=== PATIENT | female | born 1985 | race Caucasian/White ===

== ENCOUNTER → 2018-02-23 08:45 | Outpatient (CLI) | payer SELFPAY ==
--- NOTE | 2018-02-23 | DI.US.S_ITS ---
PROCEDURE: US OB LIMITED INDICATIONS: SIZE GREATER THAN DATES OUTSIDE/PRIOR DATING DATA: Last menstrual period (LMP): Not available. LMP-based estimated date of delivery (HOLDEN): Not available. First dating scan (date and location): 11/12/17. Estimated date of delivery (HOLDEN) from first dating scan: 03/21/18. TECHNIQUE: Real-time scanning was performed of the fetus, with image documentation and biometric measurements. Endovaginal scanning: None review for this study COMPARISON: 11/12/17 OB ultrasound. FINDINGS: General: A single living intrauterine gestation is present. Presentation: Vertex. Placenta: Placental position is anterior, without previa. Amniotic fluid index: 10.2 cm, normal range is 5-24 cm. heart rate: 157 beats per minute. biometrics: Biparietal diameter: 8.9 cm, 36 weeks 2 days Head circumference: 33.4 cm, 38 weeks 1 day Abdominal circumference: 34.3 cm, 38 weeks 1 day Femur length: 6.8 cm, 34 weeks 6 days Estimated gestational age from initial scan: 36 weeks 2 days Composite gestational age from present scan: 36 weeks 6 days Estimated weight and percentile: 3137 g, 76th percentile Measurement variability for biometric dating: +/- 7 days from 14 weeks to 15 weeks 6 days gestation, +/- 10 days from 16 weeks to 21 weeks 6 days gestation, +/- 2 weeks from 22 weeks to 27 weeks 6 days gestation, +/- 3 weeks for 28 weeks gestation or later. weight reference: 4500 g or EFW >90/95% is considered macrosomia or large for gestational age. EFW <10% is small for gestational age. EFW 5% or less is considered intra-uterine growth restriction. Other: Not applicable. IMPRESSION: Appropriate interval growth, no anomaly seen, normal amniotic fluid volume. The delivery date is projected to be centered on 03/21/18. Dictated by: Bairon Alfaro M.D. on 02/23/2018 at 11:16 Approved by: Bairon Alfaro M.D. on 02/23/2018 at 11:18
== END ==
PROVIDERS: Family Provider Family Medicine; PCP Family Medicine; Visit Provider Midwife
DX: O36.63X0 Maternal care for excessive fetal growth, third trimester, not applicable or unspecified (principal); Z3A.36 36 weeks gestation of pregnancy
CPT/HCPCS: 76815

== ENCOUNTER → 2021-03-20 15:01 | Outpatient (CLI) | payer SELFPAY ==
--- NOTE | 2021-03-20 15:06 | DI.US.S_ITS ---
PROCEDURE: US OB >= 14 WEEKS FETUS INDICATIONS: ANATOMY OUTSIDE/PRIOR DATING DATA: Last menstrual period (LMP): 11/01/2020. LMP-based estimated date of delivery (HOLDEN): 08/08/2021 . First dating scan (date and location): 03/20/2021 . Estimated date of delivery (HOLDEN) from first dating scan: 08/05/2021 . TECHNIQUE: Real-time scanning was performed of the fetus, with image documentation and biometric measurements. Endovaginal scanning: No COMPARISON: None. FINDINGS: General: A single living intrauterine gestation is present. Presentation: Variable. Placenta: Placental position is anterior , without previa. Amniotic fluid index: 16.6 cm, normal range is 5-24 cm. heart rate: 150 beats per minute. Maternal cervical canal: 3.8 cm long. Normal lower limit is 2.5 cm. biometrics: Biparietal diameter: 20 weeks 6 days Head circumference: 19 weeks 6 days Abdominal circumference: 20 weeks 6 days Femur length: 19 weeks 4 days Estimated gestational age from initial scan: 19 weeks 6 days Composite gestational age from present scan: 20 weeks 2 days Estimated weight and percentile: 339 g; 66 percentile Measurement variability for biometric dating: +/- 7 days from 14 weeks to 15 weeks 6 days gestation, +/- 10 days from 16 weeks to 21 weeks 6 days gestation, +/- 2 weeks from 22 weeks to 27 weeks 6 days gestation, +/- 3 weeks for 28 weeks gestation or later. weight reference: 4500 g or EFW >90/95% is considered macrosomia or large for gestational age. EFW <10% is small for gestational age. EFW 5% or less is considered intra-uterine growth restriction. Anatomic survey: Neuro: Ventricles are non-dilated at less than 10 mm. Cisterna magna is normal at 3-11 mm. Cerebellum is normal in size and morphology. Nuchal skin fold: Normal at less than 6 mm between 14-21 weeks gestational age. Face: Nose and lips, facial profile are normal. Spine: No evidence for spina bifida. Heart: 4-chambered heart is present, with normal ventricular outflow tracts. Diaphragm: Diaphragm is intact. Stomach: Left-sided stomach is present. Kidneys: Mild pyelectasis with the right renal pelvis measuring 5.9 mm and 5.7 mm on the left Cord: 3-vessel cord has orthotopic insertion. Marginal cord insertion site. Bladder: Normal in size. Extremities: All 4 extremities identified. IMPRESSION: 1. Single living IUP with composite age of 20 weeks 2 days corresponding to ultrasound HOLDEN of 08/05/2021. 2. Mild bilateral pelvicaliectasis; otherwise normal anatomic survey. Follow-up recommended. 3. Marginal placental cord insertion site which can be reassessed on follow-up examination. Dictated by: Misael Fuentes [facility] Interpreted: Bairon Alfaro MD on 03/20/2021 at 16:34 Transcribed by: KALPANA on 03/20/2021 at 16:36 Approved by: Bairon Alfaro M.D. on 03/21/2021 at 11:33
== END ==
PROVIDERS: PCP Nurse Practitioner Family; Referring Provider Registered Nurse; Visit Provider Registered Nurse
DX: Z36.89 Encounter for other specified antenatal screening (principal); Z3A.20 20 weeks gestation of pregnancy
CPT/HCPCS: 76811

== ENCOUNTER 2022-09-26 15:15 | Outpatient (RCR) | payer SELFPAY ==
--- NOTE | 2021-10-03 17:44 | PT.OIE ---
Current Diagnoses Pain in unspecified hip (10/03/21) Spinal instabilities, sacral and sacrococcygeal region (10/03/21) Obstetric damage to pelvic joints and ligaments (10/03/21) Encounter for routine follow-up (10/03/21) Visit Care Team Role Provider Type HALINA Guzman Family Provider Non-Staff Primary Care Provider Specialty: Family Practice Address: [address] [place] [address], [id number] Email: Arleth Schuster CNM Attending Provider Advanced Mainframe Software Developer Referring Provider Specialty: Medical Address: [address] [place] [address], [phone] Email: Physical Therapy Initial Evaluation PT-OP-A Visit Information Start: 10/03/21 09:36 Freq: Status: Active Protocol: Document 10/03/21 09:38 [facility] (Rec: 10/03/21 11:06 [facility] [id number]) Out-Patient Physical Therapy Visit Information Visit Information Visit Type Initial Evaluation Visit Start Time 09:45 Visit Stop Time 10:30 Total Visit Minutes 45 Visit Number 1 Evaluation Information Evaluation Date 10/03/21 PT-OP-B Current Condition Start: 10/03/21 09:36 Freq: Status: Active Protocol: Document 10/03/21 09:45 [facility] (Rec: 10/03/21 11:06 [facility] [id number]) Current Condition History of Current Condition Onset Date 2020, 2 months post Current Complaints hip pain and difficulty ambulating post History of Current Condition Hip pain was really bad in and now her baby is 2 months old. Jeane reports she has had 4 pregnancies in 2013, 2016, 2018, 2020, Her pain was worse towards the end of this last but it didnt seem to start as early on her her . She describes painmore in her SI joint but it seems to be related to core and instability, its almost always her right hip, sometimes she can get caught and feel pain then it goes away. She feels stiff in the am but doesn't feel stable stepping uo over a gate. All deliveries were vaginal deliveries. Tiny bit of tearing but didn't need stitches. Pt notes she really isn't having any leakage issues. She feels abdominal pressure at can feel like she is at time straining through her abdominal muscles. She has a video from the [facility] team for core stability Treatment Goals Patient/Caregiver Goals Pts goals include reducing pain and improving her stability. She wants to be able to be active with her kids without pain and walk smoothly Current Functional Impairments (Reported) Functional Limitations- ADL's increased hip pain with sitting and sleeping, pain with transitional movements such as supine to sidelying in bed due to SI instability Functional Limitations- Mobility/Gait Jeane is limited with walking for exercise as this increases her pain, pt doesn't feel as if she is walking smoothly PT-OP-C Subjective Start: 10/03/21 09:36 Freq: Status: Active Protocol: Document 10/03/21 09:45 [facility] (Rec: 10/09/21 15:09 [facility] [id number]) OP-PT Pain Assessment Location right posterior hip/gluteals Pain Location Details pt reports piercing hip pain with walking and after sitting and sleeping Intensity 6 Scale Used Numeric (0 - 10) Frequency Intermittent SI joint Pain Location Details SI joint Intensity 6 Scale Used Numeric (0 - 10) PT-OP-F Manual Assessment Start: 10/03/21 09:36 Freq: Status: Active Protocol: Document 10/03/21 09:38 [facility] (Rec: 10/04/21 13:36 [facility] [id number]) Manual Assessments Soft Tissue Assessment Soft Tissue Mobility Assessment tightness of the right >Left piriformis and posterior gluteals Diastasis scan was performed and Jeane is not presenting with a diastasis tightness of the L>R quadratus lumborum, lumbar paraspinal tightness B Joint Mobility Assessment Joint Mobility Assessment 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 With the SI specifically there is hypermobility with + ASLR test B, this test causes pain Standing single leg marching causes pain and unlocking of the SI joint PT-OP-I Pelvic Floor Start: 10/03/21 09:36 Freq: Status: Active Protocol: Document 10/03/21 09:45 [facility] (Rec: 10/04/21 13:36 [facility] [id number]) Pelvic Floor Assessment Urine Pelvic Floor Surgery No PT-OP-J Posture/Palpation/Skin Start: 10/03/21 09:36 Freq: Status: Active Protocol: Document 10/03/21 09:45 [facility] (Rec: 10/04/21 13:36 [facility] [id number]) Posture Evaluation Position Standing Evaluation View Lateral Pelvis Posture Posterior Tilted Comments Posture Comments pt stands in with a posterior pelvic tilt of the pelvis, hips anteriorly shifted bilaterally, pt likes to carry her kiddos on her left hip, she is elevated with her pelvis on the left PT-OP-M Strength Start: 10/03/21 09:36 Freq: Status: Active Protocol: Document 10/03/21 09:45 [facility] (Rec: 10/04/21 13:36 [facility] [id number]) Trunk Strength Trunk Manual Muscle Testing Testing Position Supine Flexion 2+ Poor+ Core Stabilization Jeane has a difficult time with TA recruitment in supine, when positioned in quadruped she is able to facilitate her TA. With attempts at dynamic stabilization today she had pain in her SI joint, she has pain with turning over in bed and was educated today on core recruitment prior to any transfers Hip Strength Hip Manual Muscle Testing Right Extension (S1) 3 Fair Abduction 3 Fair Left Extension (S1) 3 Fair Abduction 3 Fair PT-OP-Q Treatments Start: 10/03/21 14:37 Freq: Status: Active Protocol: Document 10/03/21 14:37 [facility] (Rec: 10/03/21 14:38 [facility] [id number]) Therapeutic Exercises Supine Exercises supine adductor squeeze with pelvic floor Reps/Minutes x 10 reps Other Exercises quadruped TA Reps/Minutes x 10 holding 10 sec Self-Care/Home Management Treatment Activities Self-Care/Home Management Activities body mechanics training to avoid strain to the SI joint PT-OP-T Assessment and Plan Start: 10/03/21 09:36 Freq: Status: Active Protocol: Document 10/03/21 09:45 [facility] (Rec: 10/09/21 15:12 [facility] [id number]) Physical Therapy Assessment Rehab Potential Rehabilitation Potential Excellent Evaluation Complexity Number of Personal Factors/Comorbidities 0 Number of Body Systems Impaired 1-2 Clinical Presentation at Evaluation Stable Impairments Impairments Activity Tolerance,Gait,Pain, Posture,ROM,Soft Tissue Mobility,Strength,Tone Goals 4 Impairment Core weakness of the transverse abdominal muscles and pelvic floor Short Term Goal (STG) Jeane is educated on transverse abdominal and pelvic floor stabilization for a HEP STG Duration 4 weeks Solar Sales Estimator Goal (LTG) Jeane presents with improve core stabilization for her deep transverse abdominal muscles and her pelvic floor providing increased support for her SI joint. LTG Duration 12 weeks 3 Impairment posterior/deep gluteal hip pain R>L made worse with walking. Pt rates her pain as 7/10 Assisted Goal (LTG) Jeane reports a overall reduction in hip pain and is able to walk and play with her kids with reduced pain LTG Duration 12 weeks 2 Impairment SI instability Jeane is unable to perform a active SLR due to SI pain R> L Short Term Goal (STG) Jeane is educated in a HEP for core stability STG Duration 4 weeks Assisted Goal (LTG) Jeane has improved SI stability and is able to stabilize for a ASLR test LTG Duration 12 weeks 1 Impairment SI and hip pain worse laying down to sleep, after sitting, and with walking. Pt has pain in her SI rolling over in bed . Short Term Goal (STG) Jeane is educated on abdominal bracing for bed mobility and positional changes STG Duration 4 weeks Solar Sales Estimator Goal (LTG) Jeane no longer complains of pain with bed mobility, she is able to perform sit-stand without pain and can increase her walking distance to 1 mile or greater. LTG Duration 12 weeks Assessment Summary Assessment Jeane is a 35 year old female who presents to physical therapy 2 months post after her 4th childbirth. She describes both core instability as well as intermittent piercing hip pain. Her pain is worse when walking and after sitting/ sleeping. Her goals are to improve her core strength and decrease her hip pain so that she can be active with her kids. With examination today she presents with SI instability and poor postural habits that may be contributing to her pain. She appears hypermobile throughout all her joints. With standing she tends to posteriorly pelvic tilt with a anterior sheer of the femoral head B. She is tender in the posterior gluteals R>L. Treatment today focused on facilitation of her deep core muscles and she was able to activate both her pelvic floor and transverse abdominal wall . She was given SI bracing exercises to do while she moves in bed and transitions from supine to sitting at the edge of her bed since this currently gives her pain. Body mechanics training was also initiated today to reduce undue strain to her hips and SI joint. Jeane is a good candidate for PT for core strengthening and SI stabilization exercises . Physical Therapy Plan Frequency and Duration Frequency of Treatment 1x/Week Duration of Treatment 12 Plan of Care Start Date 10/03/21 Plan of Care End Date 12/26/21 Therapeutic Interventions Therapeutic Interventions Home Exercise Program,Joint Mobilizations,Manual Therapy, Neuromuscular Re-education, Patient/Caregiver Education, Self-Care/Home Management,Soft Tissue Mobilization, Therapeutic Exercises Next Visit Focus/Plan Next Note Type Treatment Note Next Visit Plan core stabilization program, working on transverse abdominals and pelvic floor, SI stabilization and body mechanics training. Review transitional movements for position changes in bed with stabilization techniques
--- NOTE | 2021-10-03 17:47 | PT.OPPOC ---
Physical, Occupational & Speech Therapy At [facility] Current Diagnoses Pain in unspecified hip (10/03/21) Spinal instabilities, sacral and sacrococcygeal region (10/03/21) Obstetric damage to pelvic joints and ligaments (10/03/21) Encounter for routine follow-up (10/03/21) Visit Care Team Role Provider Type HALINA Guzman Family Provider Non-Staff Primary Care Provider Specialty: Family Practice Address: [address] [place] [address], [id number] Email: Arleth Schuster CNM Attending Provider Advanced Oncology Social Worker Referring Provider Specialty: Medical Address: [address] [place] [address], [phone] Email: Plan Of Care PT-OP-T Assessment and Plan Start: 10/03/21 09:36 Freq: Status: Active Protocol: Document 10/03/21 09:45 [facility] (Rec: 10/09/21 15:12 [facility] [id number]) Physical Therapy Assessment Rehab Potential Rehabilitation Potential Excellent Evaluation Complexity Number of Personal Factors/Comorbidities 0 Number of Body Systems Impaired 1-2 Clinical Presentation at Evaluation Stable Impairments Impairments Activity Tolerance,Gait,Pain, Posture,ROM,Soft Tissue Mobility,Strength,Tone Goals 4 Impairment Core weakness of the transverse abdominal muscles and pelvic floor Short Term Goal (STG) Jeane is educated on transverse abdominal and pelvic floor stabilization for a HEP STG Duration 4 weeks Mcfp Goal (LTG) Jeane presents with improved core stabilization for her deep transverse abdominal muscles and her pelvic floor providing increased support for her SI joint. LTG Duration 12 weeks 3 Impairment posterior/deep gluteal hip pain R>L made worse with walking. Pt rates her pain as 7/10 Labels Molder Goal (LTG) Jeane reports a overall reduction in hip pain and is able to walk and play with her kids with reduced pain LTG Duration 12 weeks 2 Impairment SI instability Jeane is unable to perform a active SLR due to SI pain R> L Short Term Goal (STG) Jeane is educated in a HEP for core stability STG Duration 4 weeks Mcfp Goal (LTG) Jeane has improved SI stability and is able to stabilize for a ASLR test LTG Duration 12 weeks 1 Impairment SI and hip pain worse laying down to sleep, after sitting, and with walking. Pt has pain in her SI rolling over in bed . Short Term Goal (STG) Jeane is educated on abdominal bracing for bed mobility and positional changes STG Duration 4 weeks Labels Molder Goal (LTG) Jeane no longer complains of pain with bed mobility, she is able to perform sit-stand without pain and can increase her walking distance to 1 mile or greater. LTG Duration 12 weeks Assessment Summary Assessment Jeane is a 35 year old female who presents to physical therapy 2 months post after her 4th childbirth. She describes both core instability as well as intermittent piercing hip pain. Her pain is worse when walking and after sitting/ sleeping. Her goals are to improve her core strength and decrease her hip pain so that she can be active with her kids. With examination today she presents with SI instability and poor postural habits that may be contributing to her pain. She appears hypermobile throughout all her joints. With standing she tends to posteriorly pelvic tilt with a anterior sheer of the femoral head B. She is tender in the posterior gluteals R>L. Treatment today focused on facilitation of her deep core muscles and she was able to activate both her pelvic floor and transverse abdominal wall . She was given SI bracing exercises to do while she moves in bed and transitions from supine to sitting at the edge of her bed since this currently gives her pain. Body mechanics training was also initiated today to reduce undue strain to her hips and SI joint. Jeane is a good candidate for PT for core strengthening and SI stabilization exercises . Physical Therapy Plan Frequency and Duration Frequency of Treatment 1x/Week Duration of Treatment 12 Plan of Care Start Date 10/03/21 Plan of Care End Date 12/26/21 Therapeutic Interventions Therapeutic Interventions Home Exercise Program,Joint Mobilizations,Manual Therapy, Neuromuscular Re-education, Patient/Caregiver Education, Self-Care/Home Management,Soft Tissue Mobilization, Therapeutic Exercises Next Visit Focus/Plan Next Note Type Treatment Note Next Visit Plan core stabilization program, working on transverse abdominals and pelvic floor, SI stabilization and body mechanics training. Review transitional movements for position changes in bed with stabilization techniques Plan of Care Dates Plan of Care Start Date 10/03/21 Plan of Care End Date 12/26/21 Electronically Signed by: Nedra Posey, PT 10/09/21 1747 Please Sign and Return: I have reviewed this Plan of Care and certify that the skilled therapy services above are required to meet the patient?s needs. Physician Signature Date Printed Name and Credentials Clinical Instructor Signature Printed Name and Credentials
--- NOTE | 2021-10-09 17:44 | PT.OPPOC ---
Physical, Occupational & Speech Therapy At [facility] Current Diagnoses Pain in unspecified hip (10/03/21) Spinal instabilities, sacral and sacrococcygeal region (10/03/21) Obstetric damage to pelvic joints and ligaments (10/03/21) Encounter for routine follow-up (10/03/21) Visit Care Team Role Provider Type HALINA Guzman Family Provider Non-Staff Primary Care Provider Specialty: Family Practice Address: [address] [place] [address], [id number] Email: Arleth Schuster CNM Attending Provider Advanced Handle And Vent Machine Operator Referring Provider Specialty: Medical Address: [address] [place] [address], [phone] Email: Plan Of Care PT-OP-T Assessment and Plan Start: 10/03/21 09:36 Freq: Status: Active Protocol: Document 10/03/21 09:45 [facility] (Rec: 10/09/21 15:12 [facility] [id number]) Physical Therapy Assessment Rehab Potential Rehabilitation Potential Excellent Evaluation Complexity Number of Personal Factors/Comorbidities 0 Number of Body Systems Impaired 1-2 Clinical Presentation at Evaluation Stable Impairments Impairments Activity Tolerance,Gait,Pain, Posture,ROM,Soft Tissue Mobility,Strength,Tone Goals 4 Impairment Core weakness of the transverse abdominal muscles and pelvic floor Short Term Goal (STG) Jeane is educated on transverse abdominal and pelvic floor stabilization for a HEP STG Duration 4 weeks Fdc Goal (LTG) Jeane presents with improved core stabilization for her deep transverse abdominal muscles and her pelvic floor providing increased support for her SI joint. LTG Duration 12 weeks 3 Impairment posterior/deep gluteal hip pain R>L made worse with walking. Pt rates her pain as 7/10 Accounting Specialist Goal (LTG) Jeane reports a overall reduction in hip pain and is able to walk and play with her kids with reduced pain LTG Duration 12 weeks 2 Impairment SI instability Jeane is unable to perform a active SLR due to SI pain R> L Short Term Goal (STG) Jeane is educated in a HEP for core stability STG Duration 4 weeks Fdc Goal (LTG) Jeane has improved SI stability and is able to stabilize for a ASLR test LTG Duration 12 weeks 1 Impairment SI and hip pain worse laying down to sleep, after sitting, and with walking. Pt has pain in her SI rolling over in bed . Short Term Goal (STG) Jeane is educated on abdominal bracing for bed mobility and positional changes STG Duration 4 weeks Accounting Specialist Goal (LTG) Jeane no longer complains of pain with bed mobility, she is able to perform sit-stand without pain and can increase her walking distance to 1 mile or greater. LTG Duration 12 weeks Assessment Summary Assessment Jeane is a 35 year old female who presents to physical therapy 2 months post after her 4th childbirth. She describes both core instability as well as intermittent piercing hip pain. Her pain is worse when walking and after sitting/ sleeping. Her goals are to improve her core strength and decrease her hip pain so that she can be active with her kids. With examination today she presents with SI instability and poor postural habits that may be contributing to her pain. She appears hypermobile throughout all her joints. With standing she tends to posteriorly pelvic tilt with a anterior sheer of the femoral head B. She is tender in the posterior gluteals R>L. Treatment today focused on facilitation of her deep core muscles and she was able to activate both her pelvic floor and transverse abdominal wall . She was given SI bracing exercises to do while she moves in bed and transitions from supine to sitting at the edge of her bed since this currently gives her pain. Body mechanics training was also initiated today to reduce undue strain to her hips and SI joint. Jeane is a good candidate for PT for core strengthening and SI stabilization exercises . Physical Therapy Plan Frequency and Duration Frequency of Treatment 1x/Week Duration of Treatment 12 Plan of Care Start Date 10/03/21 Plan of Care End Date 12/26/21 Therapeutic Interventions Therapeutic Interventions Home Exercise Program,Joint Mobilizations,Manual Therapy, Neuromuscular Re-education, Patient/Caregiver Education, Self-Care/Home Management,Soft Tissue Mobilization, Therapeutic Exercises Next Visit Focus/Plan Next Note Type Treatment Note Next Visit Plan core stabilization program, working on transverse abdominals and pelvic floor, SI stabilization and body mechanics training. Review transitional movements for position changes in bed with stabilization techniques Plan of Care Dates Plan of Care Start Date 10/03/21 Plan of Care End Date 12/26/21 Electronically Signed by: Nedra Posey, PT 10/09/21 1744 Please Sign and Return: I have reviewed this Plan of Care and certify that the skilled therapy services above are required to meet the patient?s needs. Physician Signature Date Printed Name and Credentials Clinical Instructor Signature Printed Name and Credentials
--- NOTE | 2021-10-18 10:55 | PT.OTN ---
Current Diagnoses Pain in unspecified hip (10/18/21) Spinal instabilities, sacral and sacrococcygeal region (10/18/21) Obstetric damage to pelvic joints and ligaments (10/18/21) Encounter for routine follow-up (10/18/21) Physical Therapy Treatment Note PT-OP-A Visit Information Start: 10/03/21 09:36 Freq: Status: Active Protocol: Document 10/18/21 09:48 [facility] (Rec: 10/18/21 10:55 [facility] [id number]) Out-Patient Physical Therapy Visit Information Visit Information Visit Type Treatment Note Visit Start Time 09:49 Visit Stop Time 10:35 Total Visit Minutes 46 Visit Number 2 PT-OP-B Current Condition Start: 10/03/21 09:36 Freq: Status: Active Protocol: Document 10/03/21 09:45 [facility] (Rec: 10/03/21 11:06 [facility] [id number]) Current Condition History of Current Condition Onset Date 2020, 2 months post Current Complaints hip pain and difficulty ambulating post History of Current Condition Hip pain was really bad in and now her baby is 2 months old. Jeane reports she has had 4 pregnancies in 2013, 2015, 2017, 2020, Her pain was worse towards the end of this last but it didnt seem to start as early on her her . She describes painmore in her SI joint but it seems to be related to core and instability, its almost always her right hip, sometimes she can get caught and feel pain then it goes away. She feels stiff in the am but doesn't feel stable stepping uo over a gate. All deliveries were vaginal deliveries. Tiny bit of tearing but didn't need stitches. Pt notes she really isn't having any leakage issues. She feels abdominal pressure at can feel like she is at time straining through her abdominal muscles. She has a video from the [facility] for core stability Treatment Goals Patient/Caregiver Goals Pts goals include reducing pain and improving her stability. She wants to be able to be active with her kids without pain and walk smoothly Current Functional Impairments (Reported) Functional Limitations- ADL's increased hip pain with sitting and sleeping, pain with transitional movements such as supine to sidelying in bed due to SI instability Functional Limitations- Mobility/Gait Jeane is limited with walking for exercise as this increases her pain, pt doesn't feel as if she is walking smoothly PT-OP-C Subjective Start: 10/03/21 09:36 Freq: Status: Active Protocol: Document 10/18/21 09:48 [facility] (Rec: 10/18/21 10:55 [facility] [id number]) OP-PT Subjective Patient Comments Patient Comments pt reports she was trying to focus on pulling in the lower abdominal but she feels that she is still really using her obliques. She has been wearing her baby. SHe feels like her hip and back are worse from wearing her baby. PT-OP-F Manual Assessment Start: 10/03/21 09:36 Freq: Status: Active Protocol: Document 10/03/21 09:38 [facility] (Rec: 10/04/21 13:36 [facility] [id number]) Manual Assessments Soft Tissue Assessment Soft Tissue Mobility Assessment tightness of the right >Left piriformis and posterior gluteals Diastasis scan was performed and Jeane is not presenting with a diastasis tightness of the L>R quadratus lumborum, lumbar paraspinal tightness B Joint Mobility Assessment Joint Mobility Assessment 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 With the SI specifically there is hypermobility with + ASLR test B, this test causes pain Standing single leg marching causes pain and unlocking of the SI joint PT-OP-I Pelvic Floor Start: 10/03/21 09:36 Freq: Status: Active Protocol: Document 10/03/21 09:45 [facility] (Rec: 10/04/21 13:36 [facility] [id number]) Pelvic Floor Assessment Urine Pelvic Floor Surgery No PT-OP-J Posture/Palpation/Skin Start: 10/03/21 09:36 Freq: Status: Active Protocol: Document 10/03/21 09:45 [facility] (Rec: 10/04/21 13:36 [facility] [id number]) Posture Evaluation Position Standing Evaluation View Lateral Pelvis Posture Posterior Tilted Comments Posture Comments pt stands in with a posterior pelvic tilt of the pelvis, hips anteriorly shifted bilaterally, pt likes to carry her kiddos on her left hip, she is elevated with her pelvis on the left PT-OP-M Strength Start: 10/03/21 09:36 Freq: Status: Active Protocol: Document 10/03/21 09:45 [facility] (Rec: 10/04/21 13:36 [facility] [id number]) Trunk Strength Trunk Manual Muscle Testing Testing Position Supine Flexion 2+ Poor+ Core Stabilization Jeane has a difficult time with TA recruitment in supine, when positioned in quadruped she is able to facilitate her TA. With attempts at dynamic stabilization today she had pain in her SI joint, she has pain with turning over in bed and was educated today on core recruitment prior to any transfers Hip Strength Hip Manual Muscle Testing Right Extension (S1) 3 Fair Abduction 3 Fair Left Extension (S1) 3 Fair Abduction 3 Fair PT-OP-Q Treatments Start: 10/03/21 14:37 Freq: Status: Active Protocol: Document 10/18/21 09:48 [facility] (Rec: 10/18/21 10:55 [facility] [id number]) Therapeutic Exercises Supine Exercises full foam roll Comments this was attempted but pt not quite ready 1/2 foam roll stretch Reps/Minutes 5 min Other Exercises thread the needle Reps/Minutes x 5 reps bridges with ball squeeze and segmental mobility Reps/Minutes x 10 quadruped opp arm lists Equipment Used 10 reps marta pose Reps/Minutes hold 1-2 minutes cat cow Reps/Minutes x15 PT-OP-T Assessment and Plan Start: 10/03/21 09:36 Freq: Status: Active Protocol: Document 10/18/21 09:48 [facility] (Rec: 10/18/21 10:55 [facility] [id number]) Physical Therapy Assessment Assessment Summary Assessment We worked a lot today and segmental lumbar mobility with Jeane and core stability. She was doing better today with engaging her core prior to moving and had less pain with bed mobility Physical Therapy Plan Frequency and Duration Frequency of Treatment 1x/Week Duration of Treatment 12 Plan of Care Start Date 10/03/21 Plan of Care End Date 12/26/21 Therapeutic Interventions Therapeutic Interventions Home Exercise Program,Joint Mobilizations,Manual Therapy, Neuromuscular Re-education, Patient/Caregiver Education, Self-Care/Home Management,Soft Tissue Mobilization, Therapeutic Exercises Next Visit Focus/Plan Next Note Type Treatment Note Next Visit Plan continue with core stabilization, review exercises for home, add in TA with chelsie, standing core stabilization with shoulder extension, begin lateral hip stabilization
--- NOTE | 2021-10-24 13:50 | PT.OTN ---
Current Diagnoses Pain in unspecified hip (10/24/21) Spinal instabilities, sacral and sacrococcygeal region (10/24/21) Obstetric damage to pelvic joints and ligaments (10/24/21) Encounter for routine follow-up (10/24/21) Physical Therapy Treatment Note PT-OP-A Visit Information Start: 10/03/21 09:36 Freq: Status: Active Protocol: Document 10/24/21 09:44 [facility] (Rec: 10/24/21 10:37 [facility] [id number]) Out-Patient Physical Therapy Visit Information Visit Information Visit Type Treatment Note Visit Start Time 09:45 Visit Stop Time 10:30 Total Visit Minutes 45 Visit Number 3 PT-OP-B Current Condition Start: 10/03/21 09:36 Freq: Status: Active Protocol: Document 10/03/21 09:45 [facility] (Rec: 10/03/21 11:06 [facility] [id number]) Current Condition History of Current Condition Onset Date 2020, 2 months post Current Complaints hip pain and difficulty ambulating post History of Current Condition Hip pain was really bad in and now her baby is 2 months old. Jeane reports she has had 4 pregnancies in 2013, 2015, 2017, 2020, Her pain was worse towards the end of this last but it didnt seem to start as early on her her . She describes painmore in her SI joint but it seems to be related to core and instability, its almost always her right hip, sometimes she can get caught and feel pain then it goes away. She feels stiff in the am but doesn't feel stable stepping uo over a gate. All deliveries were vaginal deliveries. Tiny bit of tearing but didn't need stitches. Pt notes she really isn't having any leakage issues. She feels abdominal pressure at can feel like she is at time straining through her abdominal muscles. She has a video from the [facility] team for core stability Treatment Goals Patient/Caregiver Goals Pts goals include reducing pain and improving her stability. She wants to be able to be active with her kids without pain and walk smoothly Current Functional Impairments (Reported) Functional Limitations- ADL's increased hip pain with sitting and sleeping, pain with transitional movements such as supine to sidelying in bed due to SI instability Functional Limitations- Mobility/Gait Jeane is limited with walking for exercise as this increases her pain, pt doesn't feel as if she is walking smoothly PT-OP-C Subjective Start: 10/03/21 09:36 Freq: Status: Active Protocol: Document 10/24/21 09:44 [facility] (Rec: 10/24/21 10:37 [facility] [id number]) OP-PT Subjective Patient Comments Patient Comments pt reports she didn't have as much hip pain this week. Trying to get her exercises in but still trying to find a routine Patient Reported Progress Improving PT-OP-F Manual Assessment Start: 10/03/21 09:36 Freq: Status: Active Protocol: Document 10/03/21 09:38 [facility] (Rec: 10/04/21 13:36 [facility] [id number]) Manual Assessments Soft Tissue Assessment Soft Tissue Mobility Assessment tightness of the right >Left piriformis and posterior gluteals Diastasis scan was performed and Jeane is not presenting with a diastasis tightness of the L>R quadratus lumborum, lumbar paraspinal tightness B Joint Mobility Assessment Joint Mobility Assessment 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 With the SI specifically there is hypermobility with + ASLR test B, this test causes pain Standing single leg marching causes pain and unlocking of the SI joint PT-OP-I Pelvic Floor Start: 10/03/21 09:36 Freq: Status: Active Protocol: Document 10/03/21 09:45 [facility] (Rec: 10/04/21 13:36 [facility] [id number]) Pelvic Floor Assessment Urine Pelvic Floor Surgery No PT-OP-J Posture/Palpation/Skin Start: 10/03/21 09:36 Freq: Status: Active Protocol: Document 10/03/21 09:45 [facility] (Rec: 10/04/21 13:36 [facility] [id number]) Posture Evaluation Position Standing Evaluation View Lateral Pelvis Posture Posterior Tilted Comments Posture Comments pt stands in with a posterior pelvic tilt of the pelvis, hips anteriorly shifted bilaterally, pt likes to carry her kiddos on her left hip, she is elevated with her pelvis on the left PT-OP-M Strength Start: 10/03/21 09:36 Freq: Status: Active Protocol: Document 10/03/21 09:45 [facility] (Rec: 10/04/21 13:36 [facility] [id number]) Trunk Strength Trunk Manual Muscle Testing Testing Position Supine Flexion 2+ Poor+ Core Stabilization Jeane has a difficult time with TA recruitment in supine, when positioned in quadruped she is able to facilitate her TA. With attempts at dynamic stabilization today she had pain in her SI joint, she has pain with turning over in bed and was educated today on core recruitment prior to any transfers Hip Strength Hip Manual Muscle Testing Right Extension (S1) 3 Fair Abduction 3 Fair Left Extension (S1) 3 Fair Abduction 3 Fair PT-OP-Q Treatments Start: 10/03/21 14:37 Freq: Status: Active Protocol: Document 10/24/21 09:45 [facility] (Rec: 10/24/21 13:50 [facility] [id number]) Therapeutic Exercises Supine Exercises hip ER with theraband Reps/Minutes x 20 Comments cues for core stabilization prior to roll out 1/2 foam roll stretch Reps/Minutes 5 min supine adductor squeeze with pelvic floor Reps/Minutes x 10 reps Standing Exercises standing shoulder extension with core activation Reps/Minutes 2 x 10 level 1 theraband Other Exercises bridges with ball squeeze and segmental mobility Reps/Minutes x 10 quadruped opp arm lists Equipment Used 10 reps marta pose Reps/Minutes hold 1-2 minutes quadruped TA Reps/Minutes x 10 holding 10 sec Self-Care/Home Management Treatment Education Patient Education Body Mechanics,Home Exercise Program Other Education body mechanics for when she needs to be on the floor picking up toys and playing with her kids PT-OP-T Assessment and Plan Start: 10/03/21 09:36 Freq: Status: Active Protocol: Document 10/24/21 09:45 [facility] (Rec: 10/24/21 13:50 [facility] [id number]) Physical Therapy Assessment Assessment Summary Assessment Jeane is beginning to improve her core stabilization , she still needs verbal cueing but it is becoming easier for her to engage her core. We worked today on ways she can stabilize her back while being on the floor. Continue to work on progression as she is able Physical Therapy Plan Frequency and Duration Frequency of Treatment 1x/Week Duration of Treatment 12 Plan of Care Start Date 10/03/21 Plan of Care End Date 12/26/21 Therapeutic Interventions Therapeutic Interventions Home Exercise Program,Joint Mobilizations,Manual Therapy, Neuromuscular Re-education, Patient/Caregiver Education, Self-Care/Home Management,Soft Tissue Mobilization, Therapeutic Exercises Next Visit Focus/Plan Next Note Type Treatment Note Next Visit Plan continue with core stabilization, if pt is able to add in TA with marches, sit to stand with pelvic floor engagement.
--- NOTE | 2021-10-31 14:02 | PT.OTN ---
Current Diagnoses Pain in unspecified hip (10/31/21) Spinal instabilities, sacral and sacrococcygeal region (10/31/21) Obstetric damage to pelvic joints and ligaments (10/31/21) Encounter for routine follow-up (10/31/21) Physical Therapy Treatment Note PT-OP-A Visit Information Start: 10/03/21 09:36 Freq: Status: Active Protocol: Document 10/31/21 09:44 [facility] (Rec: 10/31/21 10:41 [facility] [id number]) Out-Patient Physical Therapy Visit Information Visit Information Visit Type Treatment Note Visit Start Time 09:45 Visit Stop Time 10:30 Total Visit Minutes 45 Visit Number 4 PT-OP-B Current Condition Start: 10/03/21 09:36 Freq: Status: Active Protocol: Document 10/03/21 09:45 [facility] (Rec: 10/03/21 11:06 [facility] [id number]) Current Condition History of Current Condition Onset Date 2020, 2 months post Current Complaints hip pain and difficulty ambulating post History of Current Condition Hip pain was really bad in and now her baby is 2 months old. Jeane reports she has had 4 pregnancies in 2013, 2015, 2017, 2020, Her pain was worse towards the end of this last but it didnt seem to start as early on her her . She describes painmore in her SI joint but it seems to be related to core and instability, its almost always her right hip, sometimes she can get caught and feel pain then it goes away. She feels stiff in the am but doesn't feel stable stepping uo over a gate. All deliveries were vaginal deliveries. Tiny bit of tearing but didn't need stitches. Pt notes she really isn't having any leakage issues. She feels abdominal pressure at can feel like she is at time straining through her abdominal muscles. She has a video from the [facility] for core stability Treatment Goals Patient/Caregiver Goals Pts goals include reducing pain and improving her stability. She wants to be able to be active with her kids without pain and walk smoothly Current Functional Impairments (Reported) Functional Limitations- ADL's increased hip pain with sitting and sleeping, pain with transitional movements such as supine to sidelying in bed due to SI instability Functional Limitations- Mobility/Gait Jeane is limited with walking for exercise as this increases her pain, pt doesn't feel as if she is walking smoothly PT-OP-C Subjective Start: 10/03/21 09:36 Freq: Status: Active Protocol: Document 10/31/21 09:44 [facility] (Rec: 10/31/21 10:41 [facility] [id number]) OP-PT Subjective Patient Comments Patient Comments pt reports she can notice a difference when she sets her core before a movement. She did get a foam roller for home . 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 With the SI specifically there is hypermobility with + ASLR test B, this test causes pain Standing single leg marching causes pain and unlocking of the SI joint PT-OP-I Pelvic Floor Start: 10/03/21 09:36 Freq: Status: Active Protocol: Document 10/03/21 09:45 [facility] (Rec: 10/04/21 13:36 [facility] [id number]) Pelvic Floor Assessment Urine Pelvic Floor Surgery No PT-OP-J Posture/Palpation/Skin Start: 10/03/21 09:36 Freq: Status: Active Protocol: Document 10/03/21 09:45 [facility] (Rec: 10/04/21 13:36 [facility] [id number]) Posture Evaluation Position Standing Evaluation View Lateral Pelvis Posture Posterior Tilted Comments Posture Comments pt stands in with a posterior pelvic tilt of the pelvis, hips anteriorly shifted bilaterally, pt likes to carry her kiddos on her left hip, she is elevated with her pelvis on the left PT-OP-M Strength Start: 10/03/21 09:36 Freq: Status: Active Protocol: Document 10/03/21 09:45 [facility] (Rec: 10/04/21 13:36 [facility] [id number]) Trunk Strength Trunk Manual Muscle Testing Testing Position Supine Flexion 2+ Poor+ Core Stabilization Jeane has a difficult time with TA recruitment in supine, when positioned in quadruped she is able to facilitate her TA. With attempts at dynamic stabilization today she had pain in her SI joint, she has pain with turning over in bed and was educated today on core recruitment prior to any transfers Hip Strength Hip Manual Muscle Testing Right Extension (S1) 3 Fair Abduction 3 Fair Left Extension (S1) 3 Fair Abduction 3 Fair PT-OP-Q Treatments Start: 10/03/21 14:37 Freq: Status: Active Protocol: Document 10/31/21 09:44 [facility] (Rec: 10/31/21 10:41 [facility] [id number]) Therapeutic Exercises Supine Exercises bug Reps/Minutes x 20 reps hip ER with theraband Reps/Minutes x 20 Comments cues for core stabilization prior to roll out still a little twingy 1/2 foam roll stretch Reps/Minutes 5 min Sidelying Exercises clam shells Reps/Minutes x 10 each side Other Exercises thread the needle Reps/Minutes x 5 reps bridges with ball squeeze and segmental mobility Reps/Minutes x 10 quadruped opp arm lists Equipment Used 10 reps marta pose Reps/Minutes hold 1-2 minutes cat cow Reps/Minutes x15 quadruped TA Reps/Minutes x 10 holding 10 sec Self-Care/Home Management Treatment Education Other Education pt given cues for standing posture PT-OP-T Assessment and Plan Start: 10/03/21 09:36 Freq: Status: Active Protocol: Document 10/31/21 09:44 [facility] (Rec: 10/31/21 10:41 [facility] [id number]) Physical Therapy Assessment Goals 4 Impairment Core weakness of the transverse abdominal muscles and pelvic floor Short Term Goal (STG) Jeane is educated on transverse abdominal and pelvic floor stabilization for a HEP STG Duration 4 weeks Assisted Goal (LTG) Jeane presents with improve core stabilization for her deep transverse abdominal muscles and her pelvic floor providing increased support for her SI joint. LTG Duration 12 weeks 3 Impairment posterior/deep gluteal hip pain R>L made worse with walking. Pt rates her pain as 7/10 [employer] Mill Operator Goal (LTG) Jeane reports a overall reduction in hip pain and is able to walk and play with her kids with reduced pain LTG Duration 12 weeks 2 Impairment SI instability Jeane is unable to perform a active SLR due to SI pain R> L Short Term Goal (STG) Jeane is educated in a HEP for core stability STG Duration 4 weeks Assisted Goal (LTG) Jeane has improved SI stability and is able to stabilize for a ASLR test LTG Duration 12 weeks 1 Impairment SI and hip pain worse laying down to sleep, after sitting, and with walking. Pt has pain in her SI rolling over in bed . Short Term Goal (STG) Jeane is educated on abdominal bracing for bed mobility and positional changes STG Duration 4 weeks Rubber Mill Operator Goal (LTG) Jeane no longer complains of pain with bed mobility, she is able to perform sit-stand without pain and can increase her walking distance to 1 mile or greater. LTG Duration 12 weeks Assessment Summary Assessment Jeane is progressing well with core stabilization, added in TA with marches today, clam shells and standing squats. Reviewed postural modifications. Pt needs cues to unlock her knees and relax her gluteals in standing Physical Therapy Plan Frequency and Duration Frequency of Treatment 1x/Week Duration of Treatment 12 Plan of Care Start Date 10/03/21 Plan of Care End Date 12/26/21 Therapeutic Interventions Therapeutic Interventions Home Exercise Program,Joint Mobilizations,Manual Therapy, Neuromuscular Re-education, Patient/Caregiver Education, Self-Care/Home Management,Soft Tissue Mobilization, Therapeutic Exercises Next Visit Focus/Plan Next Note Type Treatment Note Next Visit Plan progress clam shells and side steps with theraband, continue core stabilization exercises
--- NOTE | 2021-11-07 12:28 | PT.OTN ---
Current Diagnoses Pain in unspecified hip (11/07/21) Spinal instabilities, sacral and sacrococcygeal region (11/07/21) Obstetric damage to pelvic joints and ligaments (11/07/21) Encounter for routine follow-up (11/07/21) Physical Therapy Treatment Note PT-OP-A Visit Information Start: 10/03/21 09:36 Freq: Status: Active Protocol: Document 11/07/21 09:46 [facility] (Rec: 11/07/21 10:36 [facility] [id number]) Out-Patient Physical Therapy Visit Information Visit Information Visit Type Treatment Note Visit Start Time 09:47 Visit Stop Time 10:30 Total Visit Minutes 42 Visit Number 5 PT-OP-B Current Condition Start: 10/03/21 09:36 Freq: Status: Active Protocol: Document 10/03/21 09:45 [facility] (Rec: 10/03/21 11:06 [facility] [id number]) Current Condition History of Current Condition Onset Date 2020, 2 months post Current Complaints hip pain and difficulty ambulating post History of Current Condition Hip pain was really bad in and now her baby is 2 months old. Jeane reports she has had 4 pregnancies in 2013, 2015, 2017, 2020, Her pain was worse towards the end of this last but it didnt seem to start as early on her her . She describes painmore in her SI joint but it seems to be related to core and instability, its almost always her right hip, sometimes she can get caught and feel pain then it goes away. She feels stiff in the am but doesn't feel stable stepping uo over a gate. All deliveries were vaginal deliveries. Tiny bit of tearing but didn't need stitches. Pt notes she really isn't having any leakage issues. She feels abdominal pressure at can feel like she is at time straining through her abdominal muscles. She has a video from the [facility] for core stability Treatment Goals Patient/Caregiver Goals Pts goals include reducing pain and improving her stability. She wants to be able to be active with her kids without pain and walk smoothly Current Functional Impairments (Reported) Functional Limitations- ADL's increased hip pain with sitting and sleeping, pain with transitional movements such as supine to sidelying in bed due to SI instability Functional Limitations- Mobility/Gait Jeane is limited with walking for exercise as this increases her pain, pt doesn't feel as if she is walking smoothly PT-OP-C Subjective Start: 10/03/21 09:36 Freq: Status: Active Protocol: Document 11/07/21 09:46 [facility] (Rec: 11/07/21 10:36 [facility] [id number]) OP-PT Subjective Patient Comments Patient Comments pt felt like her squats were easier, she feels unstable on stairs mostly down stairs. 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 With the SI specifically there is hypermobility with + ASLR test B, this test causes pain Standing single leg marching causes pain and unlocking of the SI joint PT-OP-I Pelvic Floor Start: 10/03/21 09:36 Freq: Status: Active Protocol: Document 10/03/21 09:45 [facility] (Rec: 10/04/21 13:36 [facility] [id number]) Pelvic Floor Assessment Urine Pelvic Floor Surgery No PT-OP-J Posture/Palpation/Skin Start: 10/03/21 09:36 Freq: Status: Active Protocol: Document 10/03/21 09:45 [facility] (Rec: 10/04/21 13:36 [facility] [id number]) Posture Evaluation Position Standing Evaluation View Lateral Pelvis Posture Posterior Tilted Comments Posture Comments pt stands in with a posterior pelvic tilt of the pelvis, hips anteriorly shifted bilaterally, pt likes to carry her kiddos on her left hip, she is elevated with her pelvis on the left PT-OP-M Strength Start: 10/03/21 09:36 Freq: Status: Active Protocol: Document 10/03/21 09:45 [facility] (Rec: 10/04/21 13:36 [facility] [id number]) Trunk Strength Trunk Manual Muscle Testing Testing Position Supine Flexion 2+ Poor+ Core Stabilization Jeane has a difficult time with TA recruitment in supine, when positioned in quadruped she is able to facilitate her TA. With attempts at dynamic stabilization today she had pain in her SI joint, she has pain with turning over in bed and was educated today on core recruitment prior to any transfers Hip Strength Hip Manual Muscle Testing Right Extension (S1) 3 Fair Abduction 3 Fair Left Extension (S1) 3 Fair Abduction 3 Fair PT-OP-Q Treatments Start: 10/03/21 14:37 Freq: Status: Active Protocol: Document 11/07/21 12:25 [facility] (Rec: 11/07/21 12:28 [facility] [id number]) Therapeutic Exercises Supine Exercises TA with march Reps/Minutes x 20 reps supine adductor squeeze with pelvic floor Reps/Minutes x 10 reps Prone Exercises prone over the ball to stretch the low back Reps/Minutes hold 1-2 min Comments pt could feel a good stretch in her low back Sidelying Exercises clam shells Reps/Minutes 2x 10 each side Other Exercises dynamic hamstring flossing Reps/Minutes in a squat position x 10 reps single leg stance without glut med drop Reps/Minutes hold 30 sec B modified down dog Reps/Minutes hold 1-2 min squat stretch Comments hold 1-2 min bridges with ball squeeze and segmental mobility Reps/Minutes x 10 PT-OP-T Assessment and Plan Start: 10/03/21 09:36 Freq: Status: Active Protocol: Document 11/07/21 09:46 [facility] (Rec: 11/07/21 10:36 [facility] [id number]) Physical Therapy Assessment Assessment Summary Assessment we worked on lateral pelvic stability with clam shells today and single leg stance without a gluteus medius drop. Jeane was better able to understand her challange with stairs. She does not have a rail and is carrying her baby along with other objects up and down the stairs. Continuing to work on core stabilization and lateral pelvic stability will help her to feel more stable. She is able to feel a low back stretch in a full squat, supine over the ball, as well as legs up the wall stretch. Physical Therapy Plan Frequency and Duration Frequency of Treatment 1x/Week Duration of Treatment 12 Plan of Care Start Date 10/03/21 Plan of Care End Date 12/26/21 Therapeutic Interventions Therapeutic Interventions Home Exercise Program,Joint Mobilizations,Manual Therapy, Neuromuscular Re-education, Patient/Caregiver Education, Self-Care/Home Management,Soft Tissue Mobilization, Therapeutic Exercises Next Visit Focus/Plan Next Note Type Treatment Note Next Visit Plan progress clam shells and side steps with theraband, continue core stabilization exercises as well as single leg standing without gluteus medius drop
--- NOTE | 2021-11-14 14:00 | PT.OTN ---
Current Diagnoses Pain in unspecified hip (11/14/21) Spinal instabilities, sacral and sacrococcygeal region (11/14/21) Obstetric damage to pelvic joints and ligaments (11/14/21) Encounter for routine follow-up (11/14/21) Physical Therapy Treatment Note PT-OP-A Visit Information Start: 10/03/21 09:36 Freq: Status: Active Protocol: Document 11/14/21 09:44 [facility] (Rec: 11/14/21 14:00 [facility] [id number]) Out-Patient Physical Therapy Visit Information Visit Information Visit Type Treatment Note Visit Start Time 09:45 Visit Stop Time 10:30 Total Visit Minutes 45 Visit Number 6 PT-OP-B Current Condition Start: 10/03/21 09:36 Freq: Status: Active Protocol: Document 10/03/21 09:45 [facility] (Rec: 10/03/21 11:06 [facility] [id number]) Current Condition History of Current Condition Onset Date 2020, 2 months post Current Complaints hip pain and difficulty ambulating post History of Current Condition Hip pain was really bad in and now her baby is 2 months old. Jeane reports she has had 4 pregnancies in 2013, 2015, 2017, 2020, Her pain was worse towards the end of this last but it didnt seem to start as early on her her . She describes painmore in her SI joint but it seems to be related to core and instability, its almost always her right hip, sometimes she can get caught and feel pain then it goes away. She feels stiff in the am but doesn't feel stable stepping uo over a gate. All deliveries were vaginal deliveries. Tiny bit of tearing but didn't need stitches. Pt notes she really isn't having any leakage issues. She feels abdominal pressure at can feel like she is at time straining through her abdominal muscles. She has a video from the [facility] team for core stability Treatment Goals Patient/Caregiver Goals Pts goals include reducing pain and improving her stability. She wants to be able to be active with her kids without pain and walk smoothly Current Functional Impairments (Reported) Functional Limitations- ADL's increased hip pain with sitting and sleeping, pain with transitional movements such as supine to sidelying in bed due to SI instability Functional Limitations- Mobility/Gait Jeane is limited with walking for exercise as this increases her pain, pt doesn't feel as if she is walking smoothly PT-OP-C Subjective Start: 10/03/21 09:36 Freq: Status: Active Protocol: Document 11/14/21 09:44 [facility] (Rec: 11/14/21 14:00 [facility] [id number]) OP-PT Subjective Patient Comments Patient Comments pt reports her knees have been sore this week. She did do a hike that was longer than she had expected and yesterday cleaned the stairs which may have placed increased stress on her knees PT-OP-F Manual Assessment Start: 10/03/21 09:36 Freq: Status: Active Protocol: Document 10/03/21 09:38 [facility] (Rec: 10/04/21 13:36 [facility] [id number]) Manual Assessments Soft Tissue Assessment Soft Tissue Mobility Assessment tightness of the right >Left piriformis and posterior gluteals Diastasis scan was performed and Jeane is not presenting with a diastasis tightness of the L>R quadratus lumborum, lumbar paraspinal tightness B Joint Mobility Assessment Joint Mobility Assessment 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 With the SI specifically there is hypermobility with + ASLR test B, this test causes pain Standing single leg marching causes pain and unlocking of the SI joint PT-OP-I Pelvic Floor Start: 10/03/21 09:36 Freq: Status: Active Protocol: Document 10/03/21 09:45 [facility] (Rec: 10/04/21 13:36 [facility] [id number]) Pelvic Floor Assessment Urine Pelvic Floor Surgery No PT-OP-J Posture/Palpation/Skin Start: 10/03/21 09:36 Freq: Status: Active Protocol: Document 10/03/21 09:45 [facility] (Rec: 10/04/21 13:36 [facility] [id number]) Posture Evaluation Position Standing Evaluation View Lateral Pelvis Posture Posterior Tilted Comments Posture Comments pt stands in with a posterior pelvic tilt of the pelvis, hips anteriorly shifted bilaterally, pt likes to carry her kiddos on her left hip, she is elevated with her pelvis on the left PT-OP-M Strength Start: 10/03/21 09:36 Freq: Status: Active Protocol: Document 10/03/21 09:45 [facility] (Rec: 10/04/21 13:36 [facility] [id number]) Trunk Strength Trunk Manual Muscle Testing Testing Position Supine Flexion 2+ Poor+ Core Stabilization Jeane has a difficult time with TA recruitment in supine, when positioned in quadruped she is able to facilitate her TA. With attempts at dynamic stabilization today she had pain in her SI joint, she has pain with turning over in bed and was educated today on core recruitment prior to any transfers Hip Strength Hip Manual Muscle Testing Right Extension (S1) 3 Fair Abduction 3 Fair Left Extension (S1) 3 Fair Abduction 3 Fair PT-OP-Q Treatments Start: 10/03/21 14:37 Freq: Status: Active Protocol: Document 11/14/21 09:44 [facility] (Rec: 11/14/21 14:00 [facility] [id number]) Therapeutic Exercises Sidelying Exercises clam shells Reps/Minutes 2x 10 each side Standing Exercises standing rows with core activation Reps/Minutes 2 x 10 reps standing shoulder extension with core activation Reps/Minutes 2 x 10 level 1 theraband Other Exercises calf stretch on the alma and steps f Reps/Minutes hold x 1-2 minutes standing squats with theraband around the thighs Reps/Minutes 2 x 10 reps single leg stance without glut med drop Reps/Minutes 2 x 1 min each marta pose Reps/Minutes hold 1-2 minutes Comments with side bends Self-Care/Home Management Treatment Activities Self-Care/Home Management Activities worked on standing positioning when holding her baby worked on home exercise program standing posture keeping a slight bend in the knees PT-OP-T Assessment and Plan Start: 10/03/21 09:36 Freq: Status: Active Protocol: Document 11/14/21 09:44 [facility] (Rec: 11/14/21 14:00 [facility] [id number]) Physical Therapy Assessment Goals 4 Impairment Core weakness of the transverse abdominal muscles and pelvic floor Short Term Goal (STG) Jeane is educated on transverse abdominal and pelvic floor stabilization for a HEP GOAL MET STG Duration 4 weeks Long-Term Goal (LTG) Jeane presents with improve core stabilization for her deep transverse abdominal muscles and her pelvic floor providing increased support for her SI joint. LTG Duration 12 weeks 3 Impairment posterior/deep gluteal hip pain R>L made worse with walking. Pt rates her pain as 7/10 Long-Term Goal (LTG) Jeane reports a overall reduction in hip pain and is able to walk and play with her kids with reduced pain LTG Duration 12 weeks 2 Impairment SI instability Jeane is unable to perform a active SLR due to SI pain R> L Short Term Goal (STG) Jeane is educated in a HEP for core stability STG Duration 4 weeks Pile Driver Operator Goal (LTG) Jeane has improved SI stability and is able to stabilize for a ASLR test LTG Duration 12 weeks 1 Impairment SI and hip pain worse laying down to sleep, after sitting, and with walking. Pt has pain in her SI rolling over in bed . Short Term Goal (STG) Jeane is educated on abdominal bracing for bed mobility and positional changes STG Duration 4 weeks Long-Term Goal (LTG) Jeane no longer complains of pain with bed mobility, she is able to perform sit-stand without pain and can increase her walking distance to 1 mile or greater. LTG Duration 12 weeks Assessment Summary Assessment Jeane is becoming more aware of her posture/core. She is elevated on her left side today and she notes she carries her baby on her left hip. We spent time with her posture on how to hold her baby as well as gluteus medius strengthening and stabilization Physical Therapy Plan Frequency and Duration Frequency of Treatment 1x/Week Duration of Treatment 12 Plan of Care Start Date 10/03/21 Plan of Care End Date 12/26/21 Therapeutic Interventions Therapeutic Interventions Home Exercise Program,Joint Mobilizations,Manual Therapy, Neuromuscular Re-education, Patient/Caregiver Education, Self-Care/Home Management,Soft Tissue Mobilization, Therapeutic Exercises Next Visit Focus/Plan Next Note Type Treatment Note Next Visit Plan continue working on stabilization, recheck pelvis alignment as today the left pelvis was hiked as this is how Jeane often holds her baby
--- NOTE | 2021-11-21 18:29 | PT.OTN ---
Current Diagnoses Pain in unspecified hip (11/21/21) Spinal instabilities, sacral and sacrococcygeal region (11/21/21) Obstetric damage to pelvic joints and ligaments (11/21/21) Encounter for routine follow-up (11/21/21) Physical Therapy Treatment Note PT-OP-A Visit Information Start: 10/03/21 09:36 Freq: Status: Active Protocol: Document 11/21/21 09:45 [facility] (Rec: 11/21/21 10:39 [facility] [id number]) Out-Patient Physical Therapy Visit Information Visit Information Visit Type Treatment Note Visit Start Time 09:45 Visit Stop Time 10:30 Total Visit Minutes 45 Visit Number 7 PT-OP-B Current Condition Start: 10/03/21 09:36 Freq: Status: Active Protocol: Document 10/03/21 09:45 [facility] (Rec: 10/03/21 11:06 [facility] [id number]) Current Condition History of Current Condition Onset Date 2020, 2 months post Current Complaints hip pain and difficulty ambulating post History of Current Condition Hip pain was really bad in and now her baby is 2 months old. Jeane reports she has had 4 pregnancies in 2013, 2015, 2017, 2020, Her pain was worse towards the end of this last but it didnt seem to start as early on her her . She describes painmore in her SI joint but it seems to be related to core and instability, its almost always her right hip, sometimes she can get caught and feel pain then it goes away. She feels stiff in the am but doesn't feel stable stepping uo over a gate. All deliveries were vaginal deliveries. Tiny bit of tearing but didn't need stitches. Pt notes she really isn't having any leakage issues. She feels abdominal pressure at can feel like she is at time straining through her abdominal muscles. She has a video from the [facility] for core stability Treatment Goals Patient/Caregiver Goals Pts goals include reducing pain and improving her stability. She wants to be able to be active with her kids without pain and walk smoothly Current Functional Impairments (Reported) Functional Limitations- ADL's increased hip pain with sitting and sleeping, pain with transitional movements such as supine to sidelying in bed due to SI instability Functional Limitations- Mobility/Gait Jeane is limited with walking for exercise as this increases her pain, pt doesn't feel as if she is walking smoothly PT-OP-C Subjective Start: 10/03/21 09:36 Freq: Status: Active Protocol: Document 11/21/21 09:45 [facility] (Rec: 11/21/21 10:39 [facility] [id number]) OP-PT Subjective Patient Comments Patient Comments IN the last few days she has gotten PT-OP-F Manual Assessment Start: 10/03/21 09:36 Freq: Status: Active Protocol: Document 10/03/21 09:38 [facility] (Rec: 10/04/21 13:36 [facility] [id number]) Manual Assessments Soft Tissue Assessment Soft Tissue Mobility Assessment tightness of the right >Left piriformis and posterior gluteals Diastasis scan was performed and Jeane is not presenting with a diastasis tightness of the L>R quadratus lumborum, lumbar paraspinal tightness B Joint Mobility Assessment Joint Mobility Assessment 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 With the SI specifically there is hypermobility with + ASLR test B, this test causes pain Standing single leg marching causes pain and unlocking of the SI joint PT-OP-I Pelvic Floor Start: 10/03/21 09:36 Freq: Status: Active Protocol: Document 10/03/21 09:45 [facility] (Rec: 10/04/21 13:36 [facility] [id number]) Pelvic Floor Assessment Urine Pelvic Floor Surgery No PT-OP-J Posture/Palpation/Skin Start: 10/03/21 09:36 Freq: Status: Active Protocol: Document 10/03/21 09:45 [facility] (Rec: 10/04/21 13:36 [facility] [id number]) Posture Evaluation Position Standing Evaluation View Lateral Pelvis Posture Posterior Tilted Comments Posture Comments pt stands in with a posterior pelvic tilt of the pelvis, hips anteriorly shifted bilaterally, pt likes to carry her kiddos on her left hip, she is elevated with her pelvis on the left PT-OP-M Strength Start: 10/03/21 09:36 Freq: Status: Active Protocol: Document 10/03/21 09:45 [facility] (Rec: 10/04/21 13:36 [facility] [id number]) Trunk Strength Trunk Manual Muscle Testing Testing Position Supine Flexion 2+ Poor+ Core Stabilization Jeane has a difficult time with TA recruitment in supine, when positioned in quadruped she is able to facilitate her TA. With attempts at dynamic stabilization today she had pain in her SI joint, she has pain with turning over in bed and was educated today on core recruitment prior to any transfers Hip Strength Hip Manual Muscle Testing Right Extension (S1) 3 Fair Abduction 3 Fair Left Extension (S1) 3 Fair Abduction 3 Fair PT-OP-Q Treatments Start: 10/03/21 14:37 Freq: Status: Active Protocol: Document 11/21/21 09:45 [facility] (Rec: 11/22/21 18:29 [facility] [id number]) Therapeutic Exercises Supine Exercises TA with march Reps/Minutes x 20 reps supine adductor squeeze with pelvic floor Reps/Minutes x 10 reps Sidelying Exercises clam shells Reps/Minutes 2x 10 each side Standing Exercises standing squats Reps/Minutes 2 x 10 Other Exercises thread the needle Reps/Minutes x 5 reps bridges with ball squeeze and segmental mobility Reps/Minutes x 10 quadruped opp arm lists Equipment Used 10 reps Comments pt able to perform OAL cat cow Reps/Minutes x15 quadruped TA Reps/Minutes x 10 holding 10 sec PT-OP-T Assessment and Plan Start: 10/03/21 09:36 Freq: Status: Active Protocol: Document 11/21/21 09:45 [facility] (Rec: 11/22/21 18:29 [facility] [id number]) Physical Therapy Assessment Assessment Summary Assessment Jeane was able to tolerate OAL lifts today, she is doing beter with bridges. Today she brings in her baby oSm to work on body mechanics when carrying him. We worked on squats with him in the carrier as she was able to do her supine exercises with him on her stomach. Physical Therapy Plan Frequency and Duration Frequency of Treatment 1x/Week Duration of Treatment 12 Plan of Care Start Date 10/03/21 Plan of Care End Date 12/26/21 Therapeutic Interventions Therapeutic Interventions Home Exercise Program,Joint Mobilizations,Manual Therapy, Neuromuscular Re-education, Patient/Caregiver Education, Self-Care/Home Management,Soft Tissue Mobilization, Therapeutic Exercises Next Visit Focus/Plan Next Note Type Treatment Note Next Visit Plan continue working on stabilization, recheck pelvis alignment as today the left pelvis was hiked as this is how Jeane often holds her baby
--- NOTE | 2021-12-06 10:58 | PT.OTN ---
Current Diagnoses Pain in unspecified hip (12/06/21) Spinal instabilities, sacral and sacrococcygeal region (12/06/21) Obstetric damage to pelvic joints and ligaments (12/06/21) Encounter for routine follow-up (12/06/21) Physical Therapy Treatment Note PT-OP-A Visit Information Start: 10/03/21 09:36 Freq: Status: Active Protocol: Document 12/06/21 09:01 [facility] (Rec: 12/06/21 10:57 [facility] [id number]) Out-Patient Physical Therapy Visit Information Visit Information Visit Type Treatment Note Visit Start Time 09:02 Visit Stop Time 09:47 Total Visit Minutes 45 Visit Number 8 PT-OP-B Current Condition Start: 10/03/21 09:36 Freq: Status: Active Protocol: Document 10/03/21 09:45 [facility] (Rec: 10/03/21 11:06 [facility] [id number]) Current Condition History of Current Condition Onset Date 2020, 2 months post Current Complaints hip pain and difficulty ambulating post History of Current Condition Hip pain was really bad in and now her baby is 2 months old. Jeane reports she has had 4 pregnancies in 2013, 2015, 2017, 2020, Her pain was worse towards the end of this last but it didnt seem to start as early on her her . She describes painmore in her SI joint but it seems to be related to core and instability, its almost always her right hip, sometimes she can get caught and feel pain then it goes away. She feels stiff in the am but doesn't feel stable stepping uo over a gate. All deliveries were vaginal deliveries. Tiny bit of tearing but didn't need stitches. Pt notes she really isn't having any leakage issues. She feels abdominal pressure at can feel like she is at time straining through her abdominal muscles. She has a video from the [facility] for core stability Treatment Goals Patient/Caregiver Goals Pts goals include reducing pain and improving her stability. She wants to be able to be active with her kids without pain and walk smoothly Current Functional Impairments (Reported) Functional Limitations- ADL's increased hip pain with sitting and sleeping, pain with transitional movements such as supine to sidelying in bed due to SI instability Functional Limitations- Mobility/Gait Jeane is limited with walking for exercise as this increases her pain, pt doesn't feel as if she is walking smoothly PT-OP-C Subjective Start: 10/03/21 09:36 Freq: Status: Active Protocol: Document 12/06/21 09:01 [facility] (Rec: 12/06/21 10:57 [facility] [id number]) OP-PT Subjective Patient Comments Patient Comments pt feels that she has been really sore the last few days, not alot of sleep. Her baby has been wanting her to carry him so she has worn him on her much more lately. PT-OP-F Manual Assessment Start: 10/03/21 09:36 Freq: Status: Active Protocol: Document 10/03/21 09:38 [facility] (Rec: 10/04/21 13:36 [facility] [id number]) Manual Assessments Soft Tissue Assessment Soft Tissue Mobility Assessment tightness of the right >Left piriformis and posterior gluteals Diastasis scan was performed and Jeane is not presenting with a diastasis tightness of the L>R quadratus lumborum, lumbar paraspinal tightness B Joint Mobility Assessment Joint Mobility Assessment 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 With the SI specifically there is hypermobility with + ASLR test B, this test causes pain Standing single leg marching causes pain and unlocking of the SI joint PT-OP-I Pelvic Floor Start: 10/03/21 09:36 Freq: Status: Active Protocol: Document 10/03/21 09:45 [facility] (Rec: 10/04/21 13:36 [facility] [id number]) Pelvic Floor Assessment Urine Pelvic Floor Surgery No PT-OP-J Posture/Palpation/Skin Start: 10/03/21 09:36 Freq: Status: Active Protocol: Document 10/03/21 09:45 [facility] (Rec: 10/04/21 13:36 [facility] [id number]) Posture Evaluation Position Standing Evaluation View Lateral Pelvis Posture Posterior Tilted Comments Posture Comments pt stands in with a posterior pelvic tilt of the pelvis, hips anteriorly shifted bilaterally, pt likes to carry her kiddos on her left hip, she is elevated with her pelvis on the left PT-OP-M Strength Start: 10/03/21 09:36 Freq: Status: Active Protocol: Document 10/03/21 09:45 [facility] (Rec: 10/04/21 13:36 [facility] [id number]) Trunk Strength Trunk Manual Muscle Testing Testing Position Supine Flexion 2+ Poor+ Core Stabilization Jeane has a difficult time with TA recruitment in supine, when positioned in quadruped she is able to facilitate her TA. With attempts at dynamic stabilization today she had pain in her SI joint, she has pain with turning over in bed and was educated today on core recruitment prior to any transfers Hip Strength Hip Manual Muscle Testing Right Extension (S1) 3 Fair Abduction 3 Fair Left Extension (S1) 3 Fair Abduction 3 Fair PT-OP-Q Treatments Start: 10/03/21 14:37 Freq: Status: Active Protocol: Document 12/06/21 09:01 [facility] (Rec: 12/06/21 10:57 [facility] [id number]) Therapeutic Exercises Supine Exercises bent knee fall outs Reps/Minutes x 5 each supine crunch with ball squeeze Reps/Minutes x 10 reps TA with march Reps/Minutes x 20 reps supine adductor squeeze with pelvic floor Reps/Minutes x 10 reps Other Exercises bridges with ball squeeze and segmental mobility Reps/Minutes x 10 quadruped opp arm lists Equipment Used 10 reps Comments pt able to perform OAL marta pose Reps/Minutes hold 1-2 minutes Comments with side bends cat cow Reps/Minutes x15 quadruped TA Reps/Minutes x 10 holding 10 sec Manual Therapy Treatment Manual Techniques right posterior hip capsule mobilizations Body Location right posterior hip Body Position Supine Reps/Duration grade II hip capsule mobilizations manual right LE distraction Reps/Duration 2 min long axis distraction MET for right pubic upslip Type MET Body Location right pubic upslip Body Position Supine Reps/Duration x 5 reps PT-OP-T Assessment and Plan Start: 10/03/21 09:36 Freq: Status: Active Protocol: Document 12/06/21 09:01 [facility] (Rec: 12/06/21 10:57 [facility] [id number]) Physical Therapy Assessment Assessment Summary Assessment Iraida is still experiencing intermittent symptoms with some days worse than others, with her kids it is difficult for her to always get in her exercises. We talked about alternating through her exercises Physical Therapy Plan Frequency and Duration Frequency of Treatment 1x/Week Duration of Treatment 12 Plan of Care Start Date 10/03/21 Plan of Care End Date 12/26/21 Therapeutic Interventions Therapeutic Interventions Home Exercise Program,Joint Mobilizations,Manual Therapy, Neuromuscular Re-education, Patient/Caregiver Education, Self-Care/Home Management,Soft Tissue Mobilization, Therapeutic Exercises Next Visit Focus/Plan Next Note Type Treatment Note Next Visit Plan continue to progress stabilization and decompression exercises for her low back. Emphasize home program even if its just a few exercises per day.
--- NOTE | 2022-01-01 16:00 | PT.OPPOC ---
Physical, Occupational & Speech Therapy At [facility] Current Diagnoses Pain in unspecified hip (01/01/22) Spinal instabilities, sacral and sacrococcygeal region (01/01/22) Obstetric damage to pelvic joints and ligaments (01/01/22) Encounter for routine follow-up (01/01/22) Visit Care Team Role Provider Type HALINA Guzman Family Provider Non-Staff Primary Care Provider Specialty: Family Practice Address: [address] [place] [address], [id number] Email: Arleth Schuster CNM Attending Provider [employer] Administrator Referring Provider Specialty: Medical Address: [address] [place] [address], [phone] Email: Plan Of Care PT-OP-T Assessment and Plan Start: 10/03/21 09:36 Freq: Status: Active Protocol: Document 01/01/22 16:00 [facility] (Rec: 01/01/22 17:19 [facility] [id number]) Physical Therapy Assessment Goals 4 Impairment Core weakness of the transverse abdominal muscles and pelvic floor Short Term Goal (STG) Jeane is educated on transverse abdominal and pelvic floor stabilization for a HEP GOAL MET STG Duration 4 weeks Group Home Goal (LTG) Jeane presents with improve core stabilization for her deep transverse abdominal muscles and her pelvic floor providing increased support for her SI joint. progressing towards goals LTG Duration 12 weeks 3 Impairment posterior/deep gluteal hip pain R>L made worse with walking. Pt rates her pain as 7/10 Group Home Goal (LTG) Jeane reports a overall reduction in hip pain and is able to walk and play with her kids with reduced pain as of 01/01/22 Jeane reports intermittent c/o symptoms LTG Duration 12 weeks 2 Impairment SI instability Jeane is unable to perform a active SLR due to SI pain R> L Short Term Goal (STG) Jeane is educated in a HEP for core stability Jeane is doing well with HEP and we continue to update this as she gets stronger STG Duration 4 weeks Group Home Goal (LTG) Jeane has improved SI stability and is able to stabilize for a ASLR test Slowly improving SI stability, at times she is able to brace with her core for heel slides , other times this irritates her SI joint LTG Duration 12 weeks 1 Impairment SI and hip pain worse laying down to sleep, after sitting, and with walking. Pt has pain in her SI rolling over in bed . Short Term Goal (STG) Jeane is educated on abdominal bracing for bed mobility and positional changes GOAL MET STG Duration 4 weeks Band Lining [place] Goal (LTG) Jeane no longer complains of pain with bed mobility, she is able to perform sit-stand without pain and can increase her walking distance to 1 mile or greater. Progressing towards goals LTG Duration 12 weeks Assessment Summary Assessment Jeane is doing better overall with her core strength . Her pain symptoms are more intermittent now. She still has difficulty getting up and down from the floor especially if she is in a half kneeling position. Also she feels unsteady on stairs and experiences knee pain. Today I added in both mini lunges and single leg squats. Jeane was advised to hold onto either a piece of furniture or the wall for stability. Her right hip is not as stable with single leg stance, left hip flexor is tighter. Jeane would benefit from continued PT as we progress her exercises to more dynamic stabilization and working towards pain free stairs and getting up from the floor. Physical Therapy Plan Frequency and Duration Frequency of Treatment 1x/Week Duration of Treatment 12 Plan of Care Start Date 01/01/22 Plan of Care End Date 03/26/22 Therapeutic Interventions Therapeutic Interventions Home Exercise Program,Joint Mobilizations,Manual Therapy, Neuromuscular Re-education, Patient/Caregiver Education, Self-Care/Home Management,Soft Tissue Mobilization, Therapeutic Activities, Therapeutic Exercises Next Visit Focus/Plan Next Note Type Treatment Note Next Visit Plan continue to progress single leg stance activities as Jeane can tolerate with her SI joint. Working on standing up from the floor with greater ease and going up and down stairs with greater ease Plan of Care Dates Plan of Care Start Date 01/01/22 Plan of Care End Date 03/26/22 Electronically Signed by: Nedra Posey, PT 01/02/22 0932 If you are in agreement with this Plan of Care, please return a signed and dated copy. I have reviewed this Plan of Care and certify that the skilled therapy services above are required to meet the patient?s needs. Physician Signature Date Printed Name and Credentials Clinical Instructor Signature Printed Name and Credentials
--- NOTE | 2022-01-01 16:00 | PT.OTN ---
Current Diagnoses Pain in unspecified hip (01/01/22) Spinal instabilities, sacral and sacrococcygeal region (01/01/22) Obstetric damage to pelvic joints and ligaments (01/01/22) Encounter for routine follow-up (01/01/22) Physical Therapy Treatment Note PT-OP-A Visit Information Start: 10/03/21 09:36 Freq: Status: Active Protocol: Document 01/01/22 16:00 [facility] (Rec: 01/01/22 16:57 [facility] [id number]) Out-Patient Physical Therapy Visit Information Visit Information Visit Type Progress Note Visit Start Time 16:00 Visit Stop Time 16:45 Total Visit Minutes 45 Visit Number 9 Evaluation Information Evaluation Date 10/03/21 PT-OP-B Current Condition Start: 10/03/21 09:36 Freq: Status: Active Protocol: Document 10/03/21 09:45 [facility] (Rec: 10/03/21 11:06 [facility] [id number]) Current Condition History of Current Condition Onset Date 2020, 2 months post Current Complaints hip pain and difficulty ambulating post History of Current Condition Hip pain was really bad in and now her baby is 2 months old. Jeane reports she has had 4 pregnancies in 2013, 2015, 2018, 2020, Her pain was worse towards the end of this last but it didnt seem to start as early on her her . She describes painmore in her SI joint but it seems to be related to core and instability, its almost always her right hip, sometimes she can get caught and feel pain then it goes away. She feels stiff in the am but doesn't feel stable stepping uo over a gate. All deliveries were vaginal deliveries. Tiny bit of tearing but didn't need stitches. Pt notes she really isn't having any leakage issues. She feels abdominal pressure at can feel like she is at time straining through her abdominal muscles. She has a video from the [facility] for core stability Treatment Goals Patient/Caregiver Goals Pts goals include reducing pain and improving her stability. She wants to be able to be active with her kids without pain and walk smoothly Current Functional Impairments (Reported) Functional Limitations- ADL's increased hip pain with sitting and sleeping, pain with transitional movements such as supine to sidelying in bed due to SI instability Functional Limitations- Mobility/Gait Jeane is limited with walking for exercise as this increases her pain, pt doesn't feel as if she is walking smoothly PT-OP-C Subjective Start: 10/03/21 09:36 Freq: Status: Active Protocol: Document 01/01/22 16:00 [facility] (Rec: 01/02/22 09:31 [facility] [id number]) OP-PT Subjective Patient Comments Patient Comments Jeane reports she has intermittent symptoms of both hip and SI pain. She notes difficulty going up and down stairs and getting up from a kneeling position while carrying her baby PT-OP-F Manual Assessment Start: 10/03/21 09:36 Freq: Status: Active Protocol: Document 10/03/21 09:38 [facility] (Rec: 10/04/21 13:36 [facility] [id number]) Manual Assessments Soft Tissue Assessment Soft Tissue Mobility Assessment tightness of the right >Left piriformis and posterior gluteals Diastasis scan was performed and Jeane is not presenting with a diastasis tightness of the L>R quadratus lumborum, lumbar paraspinal tightness B Joint Mobility Assessment Joint Mobility Assessment 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 With the SI specifically there is hypermobility with + ASLR test B, this test causes pain Standing single leg marching causes pain and unlocking of the SI joint PT-OP-I Pelvic Floor Start: 10/03/21 09:36 Freq: Status: Active Protocol: Document 10/03/21 09:45 [facility] (Rec: 10/04/21 13:36 [facility] [id number]) Pelvic Floor Assessment Urine Pelvic Floor Surgery No PT-OP-J Posture/Palpation/Skin Start: 10/03/21 09:36 Freq: Status: Active Protocol: Document 10/03/21 09:45 [facility] (Rec: 10/04/21 13:36 [facility] [id number]) Posture Evaluation Position Standing Evaluation View Lateral Pelvis Posture Posterior Tilted Comments Posture Comments pt stands in with a posterior pelvic tilt of the pelvis, hips anteriorly shifted bilaterally, pt likes to carry her kiddos on her left hip, she is elevated with her pelvis on the left PT-OP-M Strength Start: 10/03/21 09:36 Freq: Status: Active Protocol: Document 10/03/21 09:45 [facility] (Rec: 10/04/21 13:36 [facility] [id number]) Trunk Strength Trunk Manual Muscle Testing Testing Position Supine Flexion 2+ Poor+ Core Stabilization Jeane has a difficult time with TA recruitment in supine, when positioned in quadruped she is able to facilitate her TA. With attempts at dynamic stabilization today she had pain in her SI joint, she has pain with turning over in bed and was educated today on core recruitment prior to any transfers Hip Strength Hip Manual Muscle Testing Right Extension (S1) 3 Fair Abduction 3 Fair Left Extension (S1) 3 Fair Abduction 3 Fair PT-OP-Q Treatments Start: 10/03/21 14:37 Freq: Status: Active Protocol: Document 01/01/22 16:00 [facility] (Rec: 01/01/22 16:57 [facility] [id number]) Therapeutic Exercises Supine Exercises TA with march Reps/Minutes x 20 reps bug Reps/Minutes x 20 reps Standing Exercises standing squats Reps/Minutes 2 x 10 Other Exercises prone planks Reps/Minutes x 4 reps wag the tail Reps/Minutes x 8 times each side dynamic hamstring flossing Reps/Minutes in a squat position x 10 reps single leg stance without glut med drop Reps/Minutes 2 x 1 min each thread the needle Reps/Minutes x 5 reps quadruped opp arm lists Equipment Used 10 reps Comments pt able to perform OAL cat cow Reps/Minutes x15 quadruped TA Reps/Minutes x 10 holding 10 sec PT-OP-T Assessment and Plan Start: 10/03/21 09:36 Freq: Status: Active Protocol: Document 01/01/22 16:00 [facility] (Rec: 01/01/22 17:19 [facility] [id number]) Physical Therapy Assessment Goals 4 Impairment Core weakness of the transverse abdominal muscles and pelvic floor Short Term Goal (STG) Jeane is educated on transverse abdominal and pelvic floor stabilization for a HEP GOAL MET STG Duration 4 weeks [employer] Goal (LTG) Jeane presents with improve core stabilization for her deep transverse abdominal muscles and her pelvic floor providing increased support for her SI joint. progressing towards goals LTG Duration 12 weeks 3 Impairment posterior/deep gluteal hip pain R>L made worse with walking. Pt rates her pain as 7/10 Custodial Goal (LTG) Jeane reports a overall reduction in hip pain and is able to walk and play with her kids with reduced pain as of 01/01/22 Jeane reports intermittent c/o symptoms LTG Duration 12 weeks 2 Impairment SI instability Jeane is unable to perform a active SLR due to SI pain R> L Short Term Goal (STG) Jeane is educated in a HEP for core stability Jeane is doing well with HEP and we continue to update this as she gets stronger STG Duration 4 weeks [employer] Goal (LTG) Jeane has improved SI stability and is able to stabilize for a ASLR test Slowly improving SI stability, at times she is able to brace with her core for heel slides , other times this irritates her SI joint LTG Duration 12 weeks 1 Impairment SI and hip pain worse laying down to sleep, after sitting, and with walking. Pt has pain in her SI rolling over in bed . Short Term Goal (STG) Jeane is educated on abdominal bracing for bed mobility and positional changes GOAL MET STG Duration 4 weeks [employer] Goal (LTG) Jeane no longer complains of pain with bed mobility, she is able to perform sit-stand without pain and can increase her walking distance to 1 mile or greater. Progressing towards goals LTG Duration 12 weeks Assessment Summary Assessment Jeane is doing better overall with her core strength . Her pain symptoms are more intermittent now. She still has difficulty getting up and down from the floor especially if she is in a half kneeling position. Also she feels unsteady on stairs and experiences knee pain. Today I added in both mini lunges and single leg squats. Jeane was advised to hold onto either a piece of furnature or the wall for stability. Her right hip is not as stable with single leg stance, left hip flexor is tighter. Bradley would benefit from continued PT as we progress her exercises to more dynamic stabilization and working towards painfree stairs and getting up from the floor. Physical Therapy Plan Frequency and Duration Frequency of Treatment 1x/Week Duration of Treatment 12 Plan of Care Start Date 01/01/22 Plan of Care End Date 03/26/22 Therapeutic Interventions Therapeutic Interventions Home Exercise Program,Joint Mobilizations,Manual Therapy, Neuromuscular Re-education, Patient/Caregiver Education, Self-Care/Home Management,Soft Tissue Mobilization, Therapeutic Activities, Therapeutic Exercises Next Visit Focus/Plan Next Note Type Treatment Note Next Visit Plan continue to progress single leg stance activities as Jeane can tolerate with her SI joint. Working on standing up from the floor with greater ease and going up and down stairs with greater ease
--- NOTE | 2022-01-17 17:31 | PT.OTN ---
Current Diagnoses Pain in unspecified hip (01/17/22) Spinal instabilities, sacral and sacrococcygeal region (01/17/22) Obstetric damage to pelvic joints and ligaments (01/17/22) Encounter for routine follow-up (01/17/22) Physical Therapy Treatment Note PT-OP-A Visit Information Start: 10/03/21 09:36 Freq: Status: Active Protocol: Document 01/17/22 16:00 [facility] (Rec: 01/17/22 17:31 [facility] [id number]) Out-Patient Physical Therapy Visit Information Visit Information Visit Type Treatment Note Visit Start Time 16:10 Visit Stop Time 17:00 Total Visit Minutes 50 Visit Number 10 PT-OP-B Current Condition Start: 10/03/21 09:36 Freq: Status: Active Protocol: Document 10/03/21 09:45 [facility] (Rec: 10/03/21 11:06 [facility] [id number]) Current Condition History of Current Condition Onset Date 2020, 2 months post Current Complaints hip pain and difficulty ambulating post History of Current Condition Hip pain was really bad in and now her baby is 2 months old. Jeane reports she has had 4 pregnancies in 2013, 2015, 2017, 2020, Her pain was worse towards the end of this last but it didnt seem to start as early on her her . She describes painmore in her SI joint but it seems to be related to core and instability, its almost always her right hip, sometimes she can get caught and feel pain then it goes away. She feels stiff in the am but doesn't feel stable stepping uo over a gate. All deliveries were vaginal deliveries. Tiny bit of tearing but didn't need stitches. Pt notes she really isn't having any leakage issues. She feels abdominal pressure at can feel like she is at time straining through her abdominal muscles. She has a video from the [facility] for core stability Treatment Goals Patient/Caregiver Goals Pts goals include reducing pain and improving her stability. She wants to be able to be active with her kids without pain and walk smoothly Current Functional Impairments (Reported) Functional Limitations- ADL's increased hip pain with sitting and sleeping, pain with transitional movements such as supine to sidelying in bed due to SI instability Functional Limitations- Mobility/Gait Jeane is limited with walking for exercise as this increases her pain, pt doesn't feel as if she is walking smoothly PT-OP-C Subjective Start: 10/03/21 09:36 Freq: Status: Active Protocol: Document 01/17/22 16:00 [facility] (Rec: 01/17/22 17:31 [facility] [id number]) OP-PT Subjective Patient Comments Patient Comments Jeane reports some times when she wakes up she feels tight in her back, she has questions regarding her sleeping habits and positions for breast feeding PT-OP-F Manual Assessment Start: 10/03/21 09:36 Freq: Status: Active Protocol: Document 10/03/21 09:38 [facility] (Rec: 10/04/21 13:36 [facility] [id number]) Manual Assessments Soft Tissue Assessment Soft Tissue Mobility Assessment tightness of the right >Left piriformis and posterior gluteals Diastasis scan was performed and Jeane is not presenting with a diastasis tightness of the L>R quadratus lumborum, lumbar paraspinal tightness B Joint Mobility Assessment Joint Mobility Assessment 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 With the SI specifically there is hypermobility with + ASLR test B, this test causes pain Standing single leg marching causes pain and unlocking of the SI joint PT-OP-I Pelvic Floor Start: 10/03/21 09:36 Freq: Status: Active Protocol: Document 10/03/21 09:45 [facility] (Rec: 10/04/21 13:36 [facility] [id number]) Pelvic Floor Assessment Urine Pelvic Floor Surgery No PT-OP-J Posture/Palpation/Skin Start: 10/03/21 09:36 Freq: Status: Active Protocol: Document 10/03/21 09:45 [facility] (Rec: 10/04/21 13:36 [facility] [id number]) Posture Evaluation Position Standing Evaluation View Lateral Pelvis Posture Posterior Tilted Comments Posture Comments pt stands in with a posterior pelvic tilt of the pelvis, hips anteriorly shifted bilaterally, pt likes to carry her kiddos on her left hip, she is elevated with her pelvis on the left PT-OP-M Strength Start: 10/03/21 09:36 Freq: Status: Active Protocol: Document 10/03/21 09:45 [facility] (Rec: 10/04/21 13:36 [facility] [id number]) Trunk Strength Trunk Manual Muscle Testing Testing Position Supine Flexion 2+ Poor+ Core Stabilization Jeane has a difficult time with TA recruitment in supine, when positioned in quadruped she is able to facilitate her TA. With attempts at dynamic stabilization today she had pain in her SI joint, she has pain with turning over in bed and was educated today on core recruitment prior to any transfers Hip Strength Hip Manual Muscle Testing Right Extension (S1) 3 Fair Abduction 3 Fair Left Extension (S1) 3 Fair Abduction 3 Fair PT-OP-Q Treatments Start: 10/03/21 14:37 Freq: Status: Active Protocol: Document 01/17/22 16:00 [facility] (Rec: 01/17/22 17:31 [facility] [id number]) Therapeutic Exercises Supine Exercises piriformis stretch Reps/Minutes x 1 min each side TA with march Reps/Minutes x 20 reps bug Reps/Minutes x 20 reps 1/2 foam roll stretch Reps/Minutes 5 min Standing Exercises standing squats Reps/Minutes 2 x 10 Other Exercises standing lunges Reps/Minutes x 10 each side Comments with support standing single leg squats Other Exercise Name forward, back, side Reps/Minutes x 10 each direction Comments with support wag the tail Reps/Minutes x 8 times each side thread the needle Reps/Minutes x 5 reps bridges with ball squeeze and segmental mobility Reps/Minutes x 10 marta pose Reps/Minutes hold 1-2 minutes Comments with side bends cat cow Reps/Minutes x15 Self-Care/Home Management Treatment Activities Self-Care/Home Management Activities we worked on breast feeding positioning ideas to decrease strain to the back at night PT-OP-T Assessment and Plan Start: 10/03/21 09:36 Freq: Status: Active Protocol: Document 01/17/22 16:00 [facility] (Rec: 01/17/22 17:31 [facility] [id number]) Physical Therapy Assessment Assessment Summary Assessment added in piriformis stretch today and this helped with the left sided SI pain with bridges. Able to do standing squats, lunges and single leg squats with hand support Physical Therapy Plan Frequency and Duration Frequency of Treatment 1x/Week Duration of Treatment 12 Plan of Care Start Date 01/01/22 Plan of Care End Date 03/26/22 Therapeutic Interventions Therapeutic Interventions Home Exercise Program,Joint Mobilizations,Manual Therapy, Neuromuscular Re-education, Patient/Caregiver Education, Self-Care/Home Management,Soft Tissue Mobilization, Therapeutic Activities, Therapeutic Exercises Next Visit Focus/Plan Next Note Type Treatment Note Next Visit Plan continue to progress single leg stance activities as Jeane can tolerate with her SI joint. Working on standing up from the floor with greater ease and going up and down stairs with greater ease
--- NOTE | 2022-02-05 13:30 | PT.OTN ---
Current Diagnoses Pain in unspecified hip (02/05/22) Spinal instabilities, sacral and sacrococcygeal region (02/05/22) Obstetric damage to pelvic joints and ligaments (02/05/22) Encounter for routine follow-up (02/05/22) Physical Therapy Treatment Note PT-OP-A Visit Information Start: 10/03/21 09:36 Freq: Status: Active Protocol: Document 02/05/22 13:16 [facility] (Rec: 02/05/22 13:29 [facility] [id number]) Out-Patient Physical Therapy Visit Information Visit Information Visit Type Treatment Note Visit Start Time 09:50 Visit Stop Time 10:35 Total Visit Minutes 45 Visit Number 11 PT-OP-B Current Condition Start: 10/03/21 09:36 Freq: Status: Active Protocol: Document 10/03/21 09:45 [facility] (Rec: 10/03/21 11:06 [facility] [id number]) Current Condition History of Current Condition Onset Date 2020, 2 months post Current Complaints hip pain and difficulty ambulating post History of Current Condition Hip pain was really bad in and now her baby is 2 months old. Jeane reports she has had 4 pregnancies in 2013, 2015, 2017, 2020, Her pain was worse towards the end of this last but it didnt seem to start as early on her her . She describes painmore in her SI joint but it seems to be related to core and instability, its almost always her right hip, sometimes she can get caught and feel pain then it goes away. She feels stiff in the am but doesn't feel stable stepping uo over a gate. All deliveries were vaginal deliveries. Tiny bit of tearing but didn't need stitches. Pt notes she really isn't having any leakage issues. She feels abdominal pressure at can feel like she is at time straining through her abdominal muscles. She has a video from the [facility] team for core stability Treatment Goals Patient/Caregiver Goals Pts goals include reducing pain and improving her stability. She wants to be able to be active with her kids without pain and walk smoothly Current Functional Impairments (Reported) Functional Limitations- ADL's increased hip pain with sitting and sleeping, pain with transitional movements such as supine to sidelying in bed due to SI instability Functional Limitations- Mobility/Gait Jeane is limited with walking for exercise as this increases her pain, pt doesn't feel as if she is walking smoothly PT-OP-C Subjective Start: 10/03/21 09:36 Freq: Status: Active Protocol: Document 02/05/22 13:16 [facility] (Rec: 02/05/22 13:29 [facility] [id number]) OP-PT Subjective Patient Comments Patient Comments Bradley reports she has been working on single leg stance and single leg squats, she hasn't had a great deal of time to add in walks yet but she is working on that and is feeling a little better overall PT-OP-F Manual Assessment Start: 10/03/21 09:36 Freq: Status: Active Protocol: Document 10/03/21 09:38 [facility] (Rec: 10/04/21 13:36 [facility] [id number]) Manual Assessments Soft Tissue Assessment Soft Tissue Mobility Assessment tightness of the right >Left piriformis and posterior gluteals Diastasis scan was performed and Jeane is not presenting with a diastasis tightness of the L>R quadratus lumborum, lumbar paraspinal tightness B Joint Mobility Assessment Joint Mobility Assessment 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 With the SI specifically there is hypermobility with + ASLR test B, this test causes pain Standing single leg marching causes pain and unlocking of the SI joint PT-OP-I Pelvic Floor Start: 10/03/21 09:36 Freq: Status: Active Protocol: Document 10/03/21 09:45 [facility] (Rec: 10/04/21 13:36 [facility] [id number]) Pelvic Floor Assessment Urine Pelvic Floor Surgery No PT-OP-J Posture/Palpation/Skin Start: 10/03/21 09:36 Freq: Status: Active Protocol: Document 10/03/21 09:45 [facility] (Rec: 10/04/21 13:36 [facility] [id number]) Posture Evaluation Position Standing Evaluation View Lateral Pelvis Posture Posterior Tilted Comments Posture Comments pt stands in with a posterior pelvic tilt of the pelvis, hips anteriorly shifted bilaterally, pt likes to carry her kiddos on her left hip, she is elevated with her pelvis on the left PT-OP-M Strength Start: 10/03/21 09:36 Freq: Status: Active Protocol: Document 10/03/21 09:45 [facility] (Rec: 10/04/21 13:36 [facility] [id number]) Trunk Strength Trunk Manual Muscle Testing Testing Position Supine Flexion 2+ Poor+ Core Stabilization Jeane has a difficult time with TA recruitment in supine, when positioned in quadruped she is able to facilitate her TA. With attempts at dynamic stabilization today she had pain in her SI joint, she has pain with turning over in bed and was educated today on core recruitment prior to any transfers Hip Strength Hip Manual Muscle Testing Right Extension (S1) 3 Fair Abduction 3 Fair Left Extension (S1) 3 Fair Abduction 3 Fair PT-OP-Q Treatments Start: 10/03/21 14:37 Freq: Status: Active Protocol: Document 02/05/22 13:16 [facility] (Rec: 02/05/22 13:29 [facility] [id number]) Therapeutic Exercises Supine Exercises piriformis stretch Reps/Minutes x 1 min each side supine crunch with ball squeeze Reps/Minutes x 12 reps TA with march Reps/Minutes x 10 Comments this was aggravating the right side so it was stopped today 1/2 foam roll stretch Reps/Minutes 5 min Other Exercises standing single leg squats Other Exercise Name forward, back, side Reps/Minutes x 10 each direction Comments with support wag the tail Reps/Minutes x 8 times each side standing squats with theraband around the thighs Reps/Minutes x 20 thread the needle Reps/Minutes x 5 reps bridges with ball squeeze and segmental mobility Reps/Minutes x 10 quadruped opp arm lists Equipment Used 10 reps Comments pt able to perform OAL marta pose Reps/Minutes hold 1-2 minutes Comments with side bends cat cow Reps/Minutes x15 quadruped TA Reps/Minutes x 10 holding 10 sec PT-OP-T Assessment and Plan Start: 10/03/21 09:36 Freq: Status: Active Protocol: Document 02/05/22 13:16 [facility] (Rec: 02/05/22 13:29 [facility] [id number]) Physical Therapy Assessment Assessment Summary Assessment Jeane needs cues to ER at her hips with squats and to keep knees in line with 5th metatarsal to avoid knee pain. Single leg squats appear easier for her today as compared to last visit. TA in supine with marching aggravated her right SI joint. We talked about continuing to work on stretches for the hamstrings and piriformis to help her SI joint. Physical Therapy Plan Frequency and Duration Frequency of Treatment 1x/Week Duration of Treatment 12 Plan of Care Start Date 01/01/22 Plan of Care End Date 03/26/22 Therapeutic Interventions Therapeutic Interventions Home Exercise Program,Joint Mobilizations,Manual Therapy, Neuromuscular Re-education, Patient/Caregiver Education, Self-Care/Home Management,Soft Tissue Mobilization, Therapeutic Activities, Therapeutic Exercises Next Visit Focus/Plan Next Note Type Treatment Note Next Visit Plan progress standing dynamic exercises, return to squats with lateral side steps, re- assess stairs next visit
--- NOTE | 2022-02-28 17:18 | PT.OTN ---
Current Diagnoses Pain in unspecified hip (02/28/22) Spinal instabilities, sacral and sacrococcygeal region (02/28/22) Obstetric damage to pelvic joints and ligaments (02/28/22) Encounter for routine follow-up (02/28/22) Physical Therapy Treatment Note PT-OP-A Visit Information Start: 10/03/21 09:36 Freq: Status: Active Protocol: Document 02/28/22 09:01 [facility] (Rec: 02/28/22 09:54 [facility] [id number]) Out-Patient Physical Therapy Visit Information Visit Information Visit Type Treatment Note Visit Start Time 09:00 Visit Stop Time 09:45 Total Visit Minutes 45 Visit Number 12 PT-OP-B Current Condition Start: 10/03/21 09:36 Freq: Status: Active Protocol: Document 10/03/21 09:45 [facility] (Rec: 10/03/21 11:06 [facility] [id number]) Current Condition History of Current Condition Onset Date 2020, 2 months post Current Complaints hip pain and difficulty ambulating post History of Current Condition Hip pain was really bad in and now her baby is 2 months old. Jeane reports she has had 4 pregnancies in 2013, 2015, 2017, 2020, Her pain was worse towards the end of this last but it didnt seem to start as early on her her . She describes painmore in her SI joint but it seems to be related to core and instability, its almost always her right hip, sometimes she can get caught and feel pain then it goes away. She feels stiff in the am but doesn't feel stable stepping uo over a gate. All deliveries were vaginal deliveries. Tiny bit of tearing but didn't need stitches. Pt notes she really isn't having any leakage issues. She feels abdominal pressure at can feel like she is at time straining through her abdominal muscles. She has a video from the [facility] for core stability Treatment Goals Patient/Caregiver Goals Pts goals include reducing pain and improving her stability. She wants to be able to be active with her kids without pain and walk smoothly Current Functional Impairments (Reported) Functional Limitations- ADL's increased hip pain with sitting and sleeping, pain with transitional movements such as supine to sidelying in bed due to SI instability Functional Limitations- Mobility/Gait Jeane is limited with walking for exercise as this increases her pain, pt doesn't feel as if she is walking smoothly PT-OP-C Subjective Start: 10/03/21 09:36 Freq: Status: Active Protocol: Document 02/28/22 09:01 [facility] (Rec: 02/28/22 09:54 [facility] [id number]) OP-PT Subjective Patient Comments Patient Comments pt notes she feels decent and not in as much pain but she doesnt feel strong. She only had one day in the past 2 weeks when she felt SI pain and that was with shopping. 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 With the SI specifically there is hypermobility with + ASLR test B, this test causes pain Standing single leg marching causes pain and unlocking of the SI joint PT-OP-I Pelvic Floor Start: 10/03/21 09:36 Freq: Status: Active Protocol: Document 10/03/21 09:45 [facility] (Rec: 10/04/21 13:36 [facility] [id number]) Pelvic Floor Assessment Urine Pelvic Floor Surgery No PT-OP-J Posture/Palpation/Skin Start: 10/03/21 09:36 Freq: Status: Active Protocol: Document 10/03/21 09:45 [facility] (Rec: 10/04/21 13:36 [facility] [id number]) Posture Evaluation Position Standing Evaluation View Lateral Pelvis Posture Posterior Tilted Comments Posture Comments pt stands in with a posterior pelvic tilt of the pelvis, hips anteriorly shifted bilaterally, pt likes to carry her kiddos on her left hip, she is elevated with her pelvis on the left PT-OP-M Strength Start: 10/03/21 09:36 Freq: Status: Active Protocol: Document 10/03/21 09:45 [facility] (Rec: 10/04/21 13:36 [facility] [id number]) Trunk Strength Trunk Manual Muscle Testing Testing Position Supine Flexion 2+ Poor+ Core Stabilization Jeane has a difficult time with TA recruitment in supine, when positioned in quadruped she is able to facilitate her TA. With attempts at dynamic stabilization today she had pain in her SI joint, she has pain with turning over in bed and was educated today on core recruitment prior to any transfers Hip Strength Hip Manual Muscle Testing Right Extension (S1) 3 Fair Abduction 3 Fair Left Extension (S1) 3 Fair Abduction 3 Fair PT-OP-Q Treatments Start: 10/03/21 14:37 Freq: Status: Active Protocol: Document 02/28/22 09:01 [facility] (Rec: 02/28/22 09:54 [facility] [id number]) Gym Equipment Cable Column (Body Solid) Rows Resistance 20# Reps/Time 3x 10 Lat Pull Down Resistance 20# Reps/Time 3x10 Therapeutic Exercises Supine Exercises 1/2 foam roll stretch Reps/Minutes 5 min Other Exercises down dog Reps/Minutes x 3 Comments with flow into plank dynamic hamstring flossing Reps/Minutes in a squat position x 10 reps thread the needle Reps/Minutes x 5 reps marta pose Reps/Minutes hold 1-2 minutes Comments with side bends cat cow Reps/Minutes x15 PT-OP-T Assessment and Plan Start: 10/03/21 09:36 Freq: Status: Active Protocol: Document 02/28/22 09:01 [facility] (Rec: 02/28/22 09:54 [facility] [id number]) Physical Therapy Assessment Goals 4 Impairment Core weakness of the transverse abdominal muscles and pelvic floor Short Term Goal (STG) Jeane is educated on transverse abdominal and pelvic floor stabilization for a HEP GOAL MET STG Duration 4 weeks Fpc Goal (LTG) Jeane presents with improve core stabilization for her deep transverse abdominal muscles and her pelvic floor providing increased support for her SI joint. progressing towards goals LTG Duration 12 weeks 3 Impairment posterior/deep gluteal hip pain R>L made worse with walking. Pt rates her pain as 7/10 Brush Polisher Goal (LTG) Jeane reports a overall reduction in hip pain and is able to walk and play with her kids with reduced pain as of 01/01/22 Jeane reports intermittent c/o symptoms LTG Duration 12 weeks 2 Impairment SI instability Jeane is unable to perform a active SLR due to SI pain R> L Short Term Goal (STG) Jeane is educated in a HEP for core stability Jeane is doing well with HEP and we continue to update this as she gets stronger STG Duration 4 weeks Fpc Goal (LTG) Jeane has improved SI stability and is able to stabilize for a ASLR test Slowly improving SI stability, at times she is able to brace with her core for heel slides , other times this irritates her SI joint LTG Duration 12 weeks 1 Impairment SI and hip pain worse laying down to sleep, after sitting, and with walking. Pt has pain in her SI rolling over in bed . Short Term Goal (STG) Jeane is educated on abdominal bracing for bed mobility and positional changes GOAL MET STG Duration 4 weeks Fpc Goal (LTG) Jeane no longer complains of pain with bed mobility, she is able to perform sit-stand without pain and can increase her walking distance to 1 mile or greater. Progressing towards goals LTG Duration 12 weeks Assessment Summary Assessment Jeane was able to tolerate planks today and is demonstrating improved body mechanics with her squats and lunges. Thoracic extension is still needed and continued work on hamstring length and Continued core work Physical Therapy Plan Frequency and Duration Frequency of Treatment 1x/Week Duration of Treatment 12 Plan of Care Start Date 01/01/22 Plan of Care End Date 03/26/22 Therapeutic Interventions Therapeutic Interventions Home Exercise Program,Joint Mobilizations,Manual Therapy, Neuromuscular Re-education, Patient/Caregiver Education, Self-Care/Home Management,Soft Tissue Mobilization, Therapeutic Activities, Therapeutic Exercises Next Visit Focus/Plan Next Note Type Treatment Note Next Visit Plan core stabilization progression , work on planks, lateral hip stabilization and dynamic exercises. Try plyometrics on the shuttle
--- NOTE | 2022-04-11 17:20 | PT.OTN ---
Current Diagnoses Pain in unspecified hip (04/11/22) Spinal instabilities, sacral and sacrococcygeal region (04/11/22) Obstetric damage to pelvic joints and ligaments (04/11/22) Encounter for routine follow-up (04/11/22) Physical Therapy Treatment Note PT-OP-A Visit Information Start: 10/03/21 09:36 Freq: Status: Active Protocol: Document 04/11/22 15:13 [facility] (Rec: 04/11/22 16:05 [facility] [id number]) Out-Patient Physical Therapy Visit Information Visit Information Visit Type Treatment Note Visit Start Time 15:15 Visit Stop Time 16:00 Total Visit Minutes 45 Visit Number 13 PT-OP-B Current Condition Start: 10/03/21 09:36 Freq: Status: Active Protocol: Document 10/03/21 09:45 [facility] (Rec: 10/03/21 11:06 [facility] [id number]) Current Condition History of Current Condition Onset Date 2020, 2 months post Current Complaints hip pain and difficulty ambulating post History of Current Condition Hip pain was really bad in and now her baby is 2 months old. Yu reports she has had 4 pregnancies in 2013, 2015, 2017, 2020, Her pain was worse towards the end of this last but it didnt seem to start as early on her her . She describes painmore in her SI joint but it seems to be related to core and instability, its almost always her right hip, sometimes she can get caught and feel pain then it goes away. She feels stiff in the am but doesn't feel stable stepping uo over a gate. All deliveries were vaginal deliveries. Tiny bit of tearing but didn't need stitches. Pt notes she really isn't having any leakage issues. She feels abdominal pressure at can feel like she is at time straining through her abdominal muscles. She has a video from the [facility] for core stability Treatment Goals Patient/Caregiver Goals Pts goals include reducing pain and improving her stability. She wants to be able to be active with her kids without pain and walk smoothly Current Functional Impairments (Reported) Functional Limitations- ADL's increased hip pain with sitting and sleeping, pain with transitional movements such as supine to sidelying in bed due to SI instability Functional Limitations- Mobility/Gait Yu is limited with walking for exercise as this increases her pain, pt doesn't feel as if she is walking smoothly PT-OP-C Subjective Start: 10/03/21 09:36 Freq: Status: Active Protocol: Document 04/11/22 15:13 [facility] (Rec: 04/11/22 16:05 [facility] [id number]) OP-PT Subjective Patient Comments Patient Comments pt notes she has been camping and did fine with that, but packing and unpacking her right SI has been sore, she hasn't felt the SI painfor a while now Patient Reported Progress Improving PT-OP-F Manual Assessment Start: 10/03/21 09:36 Freq: Status: Active Protocol: Document 10/03/21 09:38 [facility] (Rec: 10/04/21 13:36 [facility] [id number]) Manual Assessments Soft Tissue Assessment Soft Tissue Mobility Assessment tightness of the right >Left piriformis and posterior gluteals Diastasis scan was performed and Yu is not presenting with a diastasis tightness of the L>R quadratus lumborum, lumbar paraspinal tightness B Joint Mobility Assessment Joint Mobility Assessment 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 With the SI specifically there is hypermobility with + ASLR test B, this test causes pain Standing single leg marching causes pain and unlocking of the SI joint PT-OP-I Pelvic Floor Start: 10/03/21 09:36 Freq: Status: Active Protocol: Document 10/03/21 09:45 [facility] (Rec: 10/04/21 13:36 [facility] [id number]) Pelvic Floor Assessment Urine Pelvic Floor Surgery No PT-OP-J Posture/Palpation/Skin Start: 10/03/21 09:36 Freq: Status: Active Protocol: Document 10/03/21 09:45 [facility] (Rec: 10/04/21 13:36 [facility] [id number]) Posture Evaluation Position Standing Evaluation View Lateral Pelvis Posture Posterior Tilted Comments Posture Comments pt stands in with a posterior pelvic tilt of the pelvis, hips anteriorly shifted bilaterally, pt likes to carry her kiddos on her left hip, she is elevated with her pelvis on the left PT-OP-M Strength Start: 10/03/21 09:36 Freq: Status: Active Protocol: Document 10/03/21 09:45 [facility] (Rec: 10/04/21 13:36 [facility] [id number]) Trunk Strength Trunk Manual Muscle Testing Testing Position Supine Flexion 2+ Poor+ Core Stabilization Yu has a difficult time with TA recruitment in supine, when positioned in quadruped she is able to facilitate her TA. With attempts at dynamic stabilization today she had pain in her SI joint, she has pain with turning over in bed and was educated today on core recruitment prior to any transfers Hip Strength Hip Manual Muscle Testing Right Extension (S1) 3 Fair Abduction 3 Fair Left Extension (S1) 3 Fair Abduction 3 Fair PT-OP-Q Treatments Start: 10/03/21 14:37 Freq: Status: Active Protocol: Document 04/11/22 15:15 [facility] (Rec: 04/11/22 17:20 [facility] [id number]) Therapeutic Exercises Supine Exercises Lower abdominal progression level 1 b Reps/Minutes x 10 Comments more challenging for yu piriformis stretch Reps/Minutes x 1 min each side supine crunch with ball squeeze Reps/Minutes x 12 reps TA with march Reps/Minutes x 10 Comments no pain today with marches Standing Exercises standing squats Reps/Minutes 2 x 10 Comments last set with theraband around thighs and cues to gently press out standing rows with core activation Reps/Minutes 2 x 10 reps standing shoulder extension with core activation Reps/Minutes 2 x 10 level 1 theraband Other Exercises theraband lateral walks Reps/Minutes 2 min standing single leg squats Other Exercise Name worked just forward today Reps/Minutes x 10 wag the tail Reps/Minutes x 8 times each side standing squats with theraband around the thighs Reps/Minutes x 10 thread the needle Reps/Minutes x 5 reps bridges with ball squeeze and segmental mobility Reps/Minutes x 10 marta pose Reps/Minutes hold 1-2 minutes Comments with side bends cat cow Reps/Minutes x15 PT-OP-T Assessment and Plan Start: 10/03/21 09:36 Freq: Status: Active Protocol: Document 04/11/22 15:15 [facility] (Rec: 04/11/22 17:20 [facility] [id number]) Physical Therapy Assessment Goals 4 Impairment Core weakness of the transverse abdominal muscles and pelvic floor Short Term Goal (STG) Yu is educated on transverse abdominal and pelvic floor stabilization for a HEP GOAL MET STG Duration 4 weeks Slip Dumper Goal (LTG) Yu presents with improve core stabilization for her deep transverse abdominal muscles and her pelvic floor providing increased support for her SI joint. progressing towards goals LTG Duration 12 weeks 3 Impairment posterior/deep gluteal hip pain R>L made worse with walking. Pt rates her pain as 03/03 Snf Goal (LTG) Yu reports a overall reduction in hip pain and is able to walk and play with her kids with reduced pain EXCELLENT PROGRESS as of 01/01/22 Yu reports intermittent c/o symptoms LTG Duration 12 weeks 2 Impairment SI instability Yu is unable to perform a active SLR due to SI pain R> L Short Term Goal (STG) Yu is educated in a HEP for core stability Yu is doing well with HEP and we continue to update this as she gets stronger STG Duration 4 weeks Slip Dumper Goal (LTG) Yu has improved SI stability and is able to stabilize for a ASLR test Slowly improving SI stability, at times she is able to brace with her core for heel slides , other times this irritates her SI joint LTG Duration 12 weeks 1 Impairment SI and hip pain worse laying down to sleep, after sitting, and with walking. Pt has pain in her SI rolling over in bed . Short Term Goal (STG) Yu is educated on abdominal bracing for bed mobility and positional changes GOAL MET STG Duration 4 weeks Slip Dumper Goal (LTG) Yu no longer complains of pain with bed mobility, she is able to perform sit-stand without pain and can increase her walking distance to 1 mile or greater. Progressing towards goals LTG Duration 12 weeks Assessment Summary Assessment Yu has not been seen since February 28 and she notes she hasn't felt the SI pain until recently unpacking from her camping trip. She did have right leg shorter in supine and I worked on a MET for right pubic upslip which she tolerated well. She hasn 't been able to do many of her exercises at home and I encouraged her to keep trying to fit them in. We reviewed squats today which bothered her knee some. She did better after lateral hip activation with side steps. She would benefit from continued PT for progressing her strength Physical Therapy Plan Frequency and Duration Frequency of Treatment 1x/Week Duration of Treatment 12 Plan of Care Start Date 04/11/22 Plan of Care End Date 07/12/22 Therapeutic Interventions Therapeutic Interventions Home Exercise Program,Joint Mobilizations,Manual Therapy, Neuromuscular Re-education, Patient/Caregiver Education, Self-Care/Home Management,Soft Tissue Mobilization, Therapeutic Activities, Therapeutic Exercises Next Visit Focus/Plan Next Note Type Treatment Note Next Visit Plan core stabilization progression , work on planks, lateral hip stabilization and dynamic exercises. Try plyometrics on the shuttle
--- NOTE | 2022-04-11 17:21 | PT.OPPOC ---
Physical, Occupational & Speech Therapy At [facility] Current Diagnoses Pain in unspecified hip (04/11/22) Spinal instabilities, sacral and sacrococcygeal region (04/11/22) Obstetric damage to pelvic joints and ligaments (04/11/22) Encounter for routine follow-up (04/11/22) Visit Care Team Role Provider Type HALINA Guzman Family Provider Non-Staff Primary Care Provider Specialty: Family Practice Address: [address] [place] [address], [id number] Email: Arleth Schuster CNM Attending Provider Advanced Agriculture Professor Referring Provider Specialty: Medical Address: [address] [place] [address], [id number] Email: Plan Of Care PT-OP-T Assessment and Plan Start: 10/03/21 09:36 Freq: Status: Active Protocol: Document 04/11/22 15:15 [facility] (Rec: 04/11/22 17:20 [facility] [id number]) Physical Therapy Assessment Goals 4 Impairment Core weakness of the transverse abdominal muscles and pelvic floor Short Term Goal (STG) Jeane is educated on transverse abdominal and pelvic floor stabilization for a HEP GOAL MET STG Duration 4 weeks Assisted Goal (LTG) Jeane presents with improve core stabilization for her deep transverse abdominal muscles and her pelvic floor providing increased support for her SI joint. progressing towards goals LTG Duration 12 weeks 3 Impairment posterior/deep gluteal hip pain R>L made worse with walking. Pt rates her pain as 7/10 Assisted Goal (LTG) Jeane reports a overall reduction in hip pain and is able to walk and play with her kids with reduced pain EXCELLENT PROGRESS as of 01/01/22 Jeane reports intermittent c/o symptoms LTG Duration 12 weeks 2 Impairment SI instability Jeane is unable to perform a active SLR due to SI pain R> L Short Term Goal (STG) Jeane is educated in a HEP for core stability Jeane is doing well with HEP and we continue to update this as she gets stronger STG Duration 4 weeks Assisted Goal (LTG) Jeane has improved SI stability and is able to stabilize for a ASLR test Slowly improving SI stability, at times she is able to brace with her core for heel slides , other times this irritates her SI joint LTG Duration 12 weeks 1 Impairment SI and hip pain worse laying down to sleep, after sitting, and with walking. Pt has pain in her SI rolling over in bed . Short Term Goal (STG) Jeane is educated on abdominal bracing for bed mobility and positional changes GOAL MET STG Duration 4 weeks Assisted Goal (LTG) Jeane no longer complains of pain with bed mobility, she is able to perform sit-stand without pain and can increase her walking distance to 1 mile or greater. Progressing towards goals LTG Duration 12 weeks Assessment Summary Assessment Jeane has not been seen since February 28 and she notes she hasn't felt the SI pain until recently unpacking from her camping trip. She did have right leg shorter in supine and I worked on a MET for right pubic upslip which she tolerated well. She hasn't been able to do many of her exercises at home and I encouraged her to keep trying to fit them in. We reviewed squats today which bothered her knee some. She did better after lateral hip activation with side steps. She would benefit from continued PT for progressing her strength Physical Therapy Plan Frequency and Duration Frequency of Treatment 1x/Week Duration of Treatment 12 Plan of Care Start Date 04/11/22 Plan of Care End Date 07/12/22 Therapeutic Interventions Therapeutic Interventions Home Exercise Program,Joint Mobilizations,Manual Therapy, Neuromuscular Re-education, Patient/Caregiver Education, Self-Care/Home Management,Soft Tissue Mobilization, Therapeutic Activities, Therapeutic Exercises Next Visit Focus/Plan Next Note Type Treatment Note Next Visit Plan core stabilization progression , work on planks, lateral hip stabilization and dynamic exercises. Try plyometrics on the shuttle Plan of Care Dates Plan of Care Start Date 04/11/22 Plan of Care End Date 07/12/22 Electronically Signed by: Nedra Posey, PT 04/11/22 2251 If you are in agreement with this Plan of Care, please return a signed and dated copy. I have reviewed this Plan of Care and certify that the skilled therapy services above are required to meet the patient?s needs. Physician Signature Date Printed Name and Credentials Clinical Instructor Signature Printed Name and Credentials
--- NOTE | 2022-05-02 19:09 | PT.OTN ---
Current Diagnoses Pain in unspecified hip (05/02/22) Spinal instabilities, sacral and sacrococcygeal region (05/02/22) Obstetric damage to pelvic joints and ligaments (05/02/22) Encounter for routine follow-up (05/02/22) Physical Therapy Treatment Note PT-OP-A Visit Information Start: 10/03/21 09:36 Freq: Status: Active Protocol: Document 05/02/22 15:29 [facility] (Rec: 05/02/22 16:14 [facility] [id number]) Out-Patient Physical Therapy Visit Information Visit Information Visit Type Treatment Note Visit Start Time 15:25 Visit Stop Time 16:10 Total Visit Minutes 45 Visit Number 14 PT-OP-B Current Condition Start: 10/03/21 09:36 Freq: Status: Active Protocol: Document 10/03/21 09:45 [facility] (Rec: 10/03/21 11:06 [facility] [id number]) Current Condition History of Current Condition Onset Date 2020, 2 months post Current Complaints hip pain and difficulty ambulating post History of Current Condition Hip pain was really bad in and now her baby is 2 months old. Yu reports she has had 4 pregnancies in 2013, 2015, 2017, 2020, Her pain was worse towards the end of this last but it didnt seem to start as early on her her . She describes painmore in her SI joint but it seems to be related to core and instability, its almost always her right hip, sometimes she can get caught and feel pain then it goes away. She feels stiff in the am but doesn't feel stable stepping uo over a gate. All deliveries were vaginal deliveries. Tiny bit of tearing but didn't need stitches. Pt notes she really isn't having any leakage issues. She feels abdominal pressure at can feel like she is at time straining through her abdominal muscles. She has a video from the [facility] for core stability Treatment Goals Patient/Caregiver Goals Pts goals include reducing pain and improving her stability. She wants to be able to be active with her kids without pain and walk smoothly Current Functional Impairments (Reported) Functional Limitations- ADL's increased hip pain with sitting and sleeping, pain with transitional movements such as supine to sidelying in bed due to SI instability Functional Limitations- Mobility/Gait Yu is limited with walking for exercise as this increases her pain, pt doesn't feel as if she is walking smoothly PT-OP-C Subjective Start: 10/03/21 09:36 Freq: Status: Active Protocol: Document 04/11/22 15:13 [facility] (Rec: 04/11/22 16:05 [facility] [id number]) OP-PT Subjective Patient Comments Patient Comments pt notes she has been camping and did fine with that, but packing and unpacking her right SI has been sore, she hasn't felt the SI painfor a while now Patient Reported Progress Improving PT-OP-F Manual Assessment Start: 10/03/21 09:36 Freq: Status: Active Protocol: Document 10/03/21 09:38 [facility] (Rec: 10/04/21 13:36 [facility] [id number]) Manual Assessments Soft Tissue Assessment Soft Tissue Mobility Assessment tightness of the right >Left piriformis and posterior gluteals Diastasis scan was performed and Yu is not presenting with a diastasis tightness of the L>R quadratus lumborum, lumbar paraspinal tightness B Joint Mobility Assessment Joint Mobility Assessment 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 With the SI specifically there is hypermobility with + ASLR test B, this test causes pain Standing single leg marching causes pain and unlocking of the SI joint PT-OP-I Pelvic Floor Start: 10/03/21 09:36 Freq: Status: Active Protocol: Document 10/03/21 09:45 [facility] (Rec: 10/04/21 13:36 [facility] [id number]) Pelvic Floor Assessment Urine Pelvic Floor Surgery No PT-OP-J Posture/Palpation/Skin Start: 10/03/21 09:36 Freq: Status: Active Protocol: Document 10/03/21 09:45 [facility] (Rec: 10/04/21 13:36 [facility] [id number]) Posture Evaluation Position Standing Evaluation View Lateral Pelvis Posture Posterior Tilted Comments Posture Comments pt stands in with a posterior pelvic tilt of the pelvis, hips anteriorly shifted bilaterally, pt likes to carry her kiddos on her left hip, she is elevated with her pelvis on the left PT-OP-M Strength Start: 10/03/21 09:36 Freq: Status: Active Protocol: Document 10/03/21 09:45 [facility] (Rec: 10/04/21 13:36 [facility] [id number]) Trunk Strength Trunk Manual Muscle Testing Testing Position Supine Flexion 2+ Poor+ Core Stabilization Yu has a difficult time with TA recruitment in supine, when positioned in quadruped she is able to facilitate her TA. With attempts at dynamic stabilization today she had pain in her SI joint, she has pain with turning over in bed and was educated today on core recruitment prior to any transfers Hip Strength Hip Manual Muscle Testing Right Extension (S1) 3 Fair Abduction 3 Fair Left Extension (S1) 3 Fair Abduction 3 Fair PT-OP-Q Treatments Start: 10/03/21 14:37 Freq: Status: Active Protocol: Document 05/02/22 15:29 [facility] (Rec: 05/02/22 19:09 [facility] [id number]) Gym Equipment Shuttle Recovery Bilateral Squats Resistance 50# Shuttle Recovery Platform Stable Reps/Time 3x10 squats then plyos at 25# 2x10 Therapeutic Exercises Supine Exercises Lower abdominal progression level 1 b Reps/Minutes x 10 Comments more challenging for yu TA with march Reps/Minutes x 10 Comments no pain today with marches Standing Exercises standing squats Reps/Minutes 2 x 10 Comments last set with theraband around thighs and cues to gently press out standing rows with core activation Reps/Minutes 2 x 10 reps standing shoulder extension with core activation Reps/Minutes 2 x 10 level 1 theraband Other Exercises theraband lateral walks Reps/Minutes 2 min standing lunges Reps/Minutes x 10 each side Comments with support standing single leg squats Other Exercise Name all planes today Reps/Minutes x 10 forward, lateral, back prone planks Reps/Minutes x 4 reps PT-OP-T Assessment and Plan Start: 10/03/21 09:36 Freq: Status: Active Protocol: Document 05/02/22 15:29 [facility] (Rec: 05/02/22 16:14 [facility] [id number]) Physical Therapy Assessment Goals 2 Impairment SI instability Yu is unable to perform a active SLR due to SI pain R> L Short Term Goal (STG) Yu is educated in a HEP for core stability Yu is doing well with HEP and we continue to update this as she gets stronger STG Duration 4 weeks Snf Goal (LTG) Yu has improved SI stability and is able to stabilize for a ASLR test Slowly improving SI stability, at times she is able to brace with her core for heel slides , other times this irritates her SI joint LTG Duration 12 weeks Assessment Summary Assessment Yu continues to progress well. She reports intermittent SI pain but decreased pain overall with transitional movements. She will experience pain when carrying her baby in the front pack, this decreases when carrying her baby on her back. She has started trying walks and some hikes. She would like to start walking in the mornings before her leaves for work. She is showing good progress with strength. Cues are helpful for core activation and neutral spine to avoid arching . Pt encouraged to continue with stabilization and mobility exercises at home. Will recheck in 1 month Physical Therapy Plan Frequency and Duration Frequency of Treatment 1x/Week Duration of Treatment 12 Plan of Care Start Date 04/11/22 Plan of Care End Date 07/12/22 Therapeutic Interventions Therapeutic Interventions Home Exercise Program,Joint Mobilizations,Manual Therapy, Neuromuscular Re-education, Patient/Caregiver Education, Self-Care/Home Management,Soft Tissue Mobilization, Therapeutic Activities, Therapeutic Exercises Next Visit Focus/Plan Next Note Type Treatment Note Next Visit Plan core stabilization progression , work on planks, lateral hip stabilization and dynamic exercises. Try plyometrics on the shuttle
--- NOTE | 2022-05-29 14:28 | PT.OTN ---
Current Diagnoses Pain in unspecified hip (05/30/22) Spinal instabilities, sacral and sacrococcygeal region (05/30/22) Obstetric damage to pelvic joints and ligaments (05/30/22) Encounter for routine follow-up (05/30/22) Physical Therapy Treatment Note PT-OP-A Visit Information Start: 10/03/21 09:36 Freq: Status: Active Protocol: Document 05/30/22 10:30 [facility] (Rec: 05/30/22 11:22 [facility] [id number]) Out-Patient Physical Therapy Visit Information Visit Information Visit Type Treatment Note Visit Start Time 10:30 Visit Stop Time 11:15 Total Visit Minutes 45 Visit Number 15 PT-OP-B Current Condition Start: 10/03/21 09:36 Freq: Status: Active Protocol: Document 10/03/21 09:45 [facility] (Rec: 10/03/21 11:06 [facility] [id number]) Current Condition History of Current Condition Onset Date 2020, 2 months post Current Complaints hip pain and difficulty ambulating post History of Current Condition Hip pain was really bad in and now her baby is 2 months old. Yu reports she has had 4 pregnancies in 2013, 2015, 2017, 2020, Her pain was worse towards the end of this last but it didnt seem to start as early on her her . She describes painmore in her SI joint but it seems to be related to core and instability, its almost always her right hip, sometimes she can get caught and feel pain then it goes away. She feels stiff in the am but doesn't feel stable stepping uo over a gate. All deliveries were vaginal deliveries. Tiny bit of tearing but didn't need stitches. Pt notes she really isn't having any leakage issues. She feels abdominal pressure at can feel like she is at time straining through her abdominal muscles. She has a video from the [facility] team for core stability Treatment Goals Patient/Caregiver Goals Pts goals include reducing pain and improving her stability. She wants to be able to be active with her kids without pain and walk smoothly Current Functional Impairments (Reported) Functional Limitations- ADL's increased hip pain with sitting and sleeping, pain with transitional movements such as supine to sidelying in bed due to SI instability Functional Limitations- Mobility/Gait Yu is limited with walking for exercise as this increases her pain, pt doesn't feel as if she is walking smoothly PT-OP-C Subjective Start: 10/03/21 09:36 Freq: Status: Active Protocol: Document 05/30/22 10:30 [facility] (Rec: 06/04/22 14:28 [facility] [id number]) OP-PT Subjective Patient Comments Patient Comments pt notes she is in more pain today PT-OP-F Manual Assessment Start: 10/03/21 09:36 Freq: Status: Active Protocol: Document 10/03/21 09:38 [facility] (Rec: 10/04/21 13:36 [facility] [id number]) Manual Assessments Soft Tissue Assessment Soft Tissue Mobility Assessment tightness of the right >Left piriformis and posterior gluteals Diastasis scan was performed and Yu is not presenting with a diastasis tightness of the L>R quadratus lumborum, lumbar paraspinal tightness B Joint Mobility Assessment Joint Mobility Assessment 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 With the SI specifically there is hypermobility with + ASLR test B, this test causes pain Standing single leg marching causes pain and unlocking of the SI joint PT-OP-I Pelvic Floor Start: 10/03/21 09:36 Freq: Status: Active Protocol: Document 10/03/21 09:45 [facility] (Rec: 10/04/21 13:36 [facility] [id number]) Pelvic Floor Assessment Urine Pelvic Floor Surgery No PT-OP-J Posture/Palpation/Skin Start: 10/03/21 09:36 Freq: Status: Active Protocol: Document 10/03/21 09:45 [facility] (Rec: 10/04/21 13:36 [facility] [id number]) Posture Evaluation Position Standing Evaluation View Lateral Pelvis Posture Posterior Tilted Comments Posture Comments pt stands in with a posterior pelvic tilt of the pelvis, hips anteriorly shifted bilaterally, pt likes to carry her kiddos on her left hip, she is elevated with her pelvis on the left PT-OP-M Strength Start: 10/03/21 09:36 Freq: Status: Active Protocol: Document 10/03/21 09:45 [facility] (Rec: 10/04/21 13:36 [facility] [id number]) Trunk Strength Trunk Manual Muscle Testing Testing Position Supine Flexion 2+ Poor+ Core Stabilization Yu has a difficult time with TA recruitment in supine, when positioned in quadruped she is able to facilitate her TA. With attempts at dynamic stabilization today she had pain in her SI joint, she has pain with turning over in bed and was educated today on core recruitment prior to any transfers Hip Strength Hip Manual Muscle Testing Right Extension (S1) 3 Fair Abduction 3 Fair Left Extension (S1) 3 Fair Abduction 3 Fair PT-OP-Q Treatments Start: 10/03/21 14:37 Freq: Status: Active Protocol: Document 05/30/22 10:30 [facility] (Rec: 05/30/22 11:22 [facility] [id number]) Therapeutic Exercises Supine Exercises Lower abdominal progression level 1 b Reps/Minutes x 10 Comments more challenging for yu piriformis stretch Reps/Minutes x 1 min each side supine crunch with ball squeeze Reps/Minutes x 10 supine adductor squeeze with pelvic floor Reps/Minutes x 10 reps Standing Exercises standing squats Reps/Minutes 2 x 10 Comments last set with theraband around thighs and cues to gently press out standing rows with core activation Reps/Minutes 2 x 10 reps standing shoulder extension with core activation Reps/Minutes 2 x 10 level 1 theraband Other Exercises thread the needle Reps/Minutes x 5 reps bridges with ball squeeze and segmental mobility Reps/Minutes x 10 quadruped opp arm lists Equipment Used 10 reps Comments pt able to perform OAL marta pose Reps/Minutes hold 1-2 minutes Comments with side bends cat cow Reps/Minutes x15 quadruped TA Reps/Minutes x 10 holding 10 sec Manual Therapy Treatment Manual Techniques manual hamstring stretch Reps/Duration hold 1-2 min each side manual right LE distraction Reps/Duration 2 min long axis distraction MET for right pubic upslip Type MET Body Location right pubic upslip Body Position Supine Reps/Duration x 5 reps PT-OP-T Assessment and Plan Start: 10/03/21 09:36 Freq: Status: Active Protocol: Document 05/30/22 10:30 [facility] (Rec: 05/30/22 11:22 [facility] [id number]) Physical Therapy Assessment Assessment Summary Assessment Yu was restricted with muscle flexibility today. A home stretching program is encouraged along with daily walking even if for short distance. Hamstring length was restricted today Physical Therapy Plan Frequency and Duration Frequency of Treatment 1x/Week Duration of treatment (weeks) 12 Plan of Care Start Date 04/11/22 Plan of Care End Date 07/12/22 Therapeutic Interventions Therapeutic Interventions Home Exercise Program,Joint Mobilizations,Manual Therapy, Neuromuscular Re-education, Patient/Caregiver Education, Self-Care/Home Management,Soft Tissue Mobilization, Therapeutic Activities, Therapeutic Exercises Next Visit Focus/Plan Next Note Type Treatment Note Next Visit Plan core stabilization progression , work on planks, lateral hip stabilization and dynamic exercises. Try plyometrics on the shuttle
--- NOTE | 2022-07-25 17:21 | PT.OTN ---
Current Diagnoses Pain in unspecified hip (07/25/22) Spinal instabilities, sacral and sacrococcygeal region (07/25/22) Obstetric damage to pelvic joints and ligaments (07/25/22) Encounter for routine follow-up (07/25/22) Physical Therapy Treatment Note PT-OP-A Visit Information Start: 10/03/21 09:36 Freq: Status: Active Protocol: Document 07/25/22 15:29 [facility] (Rec: 07/25/22 16:03 [facility] [id number]) Out-Patient Physical Therapy Visit Information Visit Information Visit Type Treatment Note Visit Start Time 15:30 Visit Stop Time 16:00 Total Visit Minutes 30 Visit Number 17 PT-OP-B Current Condition Start: 10/03/21 09:36 Freq: Status: Active Protocol: Document 10/03/21 09:45 [facility] (Rec: 10/03/21 11:06 [facility] [id number]) Current Condition History of Current Condition Onset Date 2020, 2 months post Current Complaints hip pain and difficulty ambulating post History of Current Condition Hip pain was really bad in and now her baby is 2 months old. Jeane reports she has had 4 pregnancies in 2013, 2015, 2017, 2020, Her pain was worse towards the end of this last but it didnt seem to start as early on her her . She describes painmore in her SI joint but it seems to be related to core and instability, its almost always her right hip, sometimes she can get caught and feel pain then it goes away. She feels stiff in the am but doesn't feel stable stepping uo over a gate. All deliveries were vaginal deliveries. Tiny bit of tearing but didn't need stitches. Pt notes she really isn't having any leakage issues. She feels abdominal pressure at can feel like she is at time straining through her abdominal muscles. She has a video from the [facility] team for core stability Treatment Goals Patient/Caregiver Goals Pts goals include reducing pain and improving her stability. She wants to be able to be active with her kids without pain and walk smoothly Current Functional Impairments (Reported) Functional Limitations- ADL's increased hip pain with sitting and sleeping, pain with transitional movements such as supine to sidelying in bed due to SI instability Functional Limitations- Mobility/Gait Jeane is limited with walking for exercise as this increases her pain, pt doesn't feel as if she is walking smoothly PT-OP-C Subjective Start: 10/03/21 09:36 Freq: Status: Active Protocol: Document 07/25/22 15:29 [facility] (Rec: 07/25/22 16:03 [facility] [id number]) OP-PT Subjective Patient Comments Patient Comments pt notes she will have really good days and then sore days but she has been able to work on her stretches to calm her pain. 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 With the SI specifically there is hypermobility with + ASLR test B, this test causes pain Standing single leg marching causes pain and unlocking of the SI joint PT-OP-I Pelvic Floor Start: 10/03/21 09:36 Freq: Status: Active Protocol: Document 10/03/21 09:45 [facility] (Rec: 10/04/21 13:36 [facility] [id number]) Pelvic Floor Assessment Urine Pelvic Floor Surgery No PT-OP-J Posture/Palpation/Skin Start: 10/03/21 09:36 Freq: Status: Active Protocol: Document 10/03/21 09:45 [facility] (Rec: 10/04/21 13:36 [facility] [id number]) Posture Evaluation Position Standing Evaluation View Lateral Pelvis Posture Posterior Tilted Comments Posture Comments pt stands in with a posterior pelvic tilt of the pelvis, hips anteriorly shifted bilaterally, pt likes to carry her kiddos on her left hip, she is elevated with her pelvis on the left PT-OP-M Strength Start: 10/03/21 09:36 Freq: Status: Active Protocol: Document 10/03/21 09:45 [facility] (Rec: 10/04/21 13:36 [facility] [id number]) Trunk Strength Trunk Manual Muscle Testing Testing Position Supine Flexion 2+ Poor+ Core Stabilization Jeane has a difficult time with TA recruitment in supine, when positioned in quadruped she is able to facilitate her TA. With attempts at dynamic stabilization today she had pain in her SI joint, she has pain with turning over in bed and was educated today on core recruitment prior to any transfers Hip Strength Hip Manual Muscle Testing Right Extension (S1) 3 Fair Abduction 3 Fair Left Extension (S1) 3 Fair Abduction 3 Fair PT-OP-Q Treatments Start: 10/03/21 14:37 Freq: Status: Active Protocol: Document 07/25/22 15:30 [facility] (Rec: 07/25/22 17:20 [facility] [id number]) Therapeutic Exercises Supine Exercises Lower abdominal progression level 1 b Reps/Minutes x 10 Comments needed to do one leg at a time today supine crunch with ball squeeze Reps/Minutes x 10 TA with march Reps/Minutes x 10 Comments no pain today with marches bug Reps/Minutes x 20 reps Comments modified to one leg at a time Standing Exercises standing squats Reps/Minutes 2 x 10 Comments improved form today, pt able to keep knees aligned Other Exercises standing lunges Reps/Minutes x 10 each side Comments without support, improved form prone planks Reps/Minutes x 2 reps bridges with ball squeeze and segmental mobility Reps/Minutes x 10 quadruped opp arm lists Equipment Used 10 reps Comments pt able to perform OAL marta pose Reps/Minutes hold 1-2 minutes Comments with side bends cat cow Reps/Minutes x15 quadruped TA Reps/Minutes x 10 reps holding 10 sec PT-OP-T Assessment and Plan Start: 10/03/21 09:36 Freq: Status: Active Protocol: Document 07/25/22 15:30 [facility] (Rec: 07/25/22 17:20 [facility] [id number]) Physical Therapy Assessment Goals 4 Impairment Core weakness of the transverse abdominal muscles and pelvic floor Short Term Goal (STG) Jeane is educated on transverse abdominal and pelvic floor stabilization for a HEP GOAL MET STG Duration 4 weeks Group Home Goal (LTG) Jeane presents with improve core stabilization for her deep transverse abdominal muscles and her pelvic floor providing increased support for her SI joint. progressing towards goals LTG Duration 12 weeks 3 Impairment posterior/deep gluteal hip pain R>L made worse with walking. Pt rates her pain as 7/10 Group Home Goal (LTG) Jeane reports a overall reduction in hip pain and is able to walk and play with her kids with reduced pain EXCELLENT PROGRESS as of 07/25/22 Jeane reports intermittent c/o symptoms with days where she is not feeling pain. LTG Duration 12 weeks 2 Impairment SI instability Jeane is unable to perform a active SLR due to SI pain R> L Short Term Goal (STG) Jeane is educated in a HEP for core stability Jeane is doing well with HEP and we continue to update this as she gets stronger STG Duration 4 weeks [employer] Goal (LTG) Jeane has improved SI stability and is able to stabilize for a ASLR test Slowly improving SI stability, at times she is able to brace with her core for heel slides , other times this irritates her SI joint LTG Duration 12 weeks 1 Impairment SI and hip pain worse laying down to sleep, after sitting, and with walking. Pt has pain in her SI rolling over in bed . Short Term Goal (STG) Jeane is educated on abdominal bracing for bed mobility and positional changes GOAL MET STG Duration 4 weeks Group Home Goal (LTG) Jeane no longer complains of pain with bed mobility, she is able to perform sit-stand without pain and can increase her walking distance to 1 mile or greater. Progressing towards goals LTG Duration 12 weeks Progress Towards Goals Progress Towards Goals Progressing Toward Goals Assessment Summary Assessment Jeane is showing improved form with squats and lunges. She has been trying to walk more with her kids and I feel this is super helpful for her as well Physical Therapy Plan Frequency and Duration Frequency of Treatment 1x/Week Duration of treatment (weeks) 12 Plan of Care Start Date 07/25/22 Plan of Care End Date 10/15/22 Next Visit Focus/Plan Next Note Type Treatment Note Next Visit Plan core stabilization progression , work on planks, lateral hip stabilization and dynamic exercises. Try plyometrics on the shuttle
--- NOTE | 2022-07-25 17:22 | PT.OPPOC ---
Physical, Occupational & Speech Therapy At [facility] Current Diagnoses Pain in unspecified hip (07/25/22) Spinal instabilities, sacral and sacrococcygeal region (07/25/22) Obstetric damage to pelvic joints and ligaments (07/25/22) Encounter for routine follow-up (07/25/22) Visit Care Team Role Provider Type HALINA Guzman Family Provider Non-Staff Primary Care Provider Specialty: Family Practice Address: [address] [place] [address], [id number] Email: Arleth Schuster CNM Attending Provider Advanced Vision Impaired Teacher Referring Provider Specialty: Medical Address: [address] [place] [address], [phone] Email: Plan Of Care PT-OP-T Assessment and Plan Start: 10/03/21 09:36 Freq: Status: Active Protocol: Document 07/25/22 15:30 [facility] (Rec: 07/25/22 17:20 [facility] [id number]) Physical Therapy Assessment Goals 4 Impairment Core weakness of the transverse abdominal muscles and pelvic floor Short Term Goal (STG) Jeane is educated on transverse abdominal and pelvic floor stabilization for a HEP GOAL MET STG Duration 4 weeks Assisted Goal (LTG) Jeane presents with improve core stabilization for her deep transverse abdominal muscles and her pelvic floor providing increased support for her SI joint. progressing towards goals LTG Duration 12 weeks 3 Impairment posterior/deep gluteal hip pain R>L made worse with walking. Pt rates her pain as 7/10 Assisted Goal (LTG) Jeane reports a overall reduction in hip pain and is able to walk and play with her kids with reduced pain EXCELLENT PROGRESS as of 07/25/22 Jeane reports intermittent c/o symptoms with days where she is not feeling pain. LTG Duration 12 weeks 2 Impairment SI instability Jeane is unable to perform a active SLR due to SI pain R> L Short Term Goal (STG) Jeane is educated in a HEP for core stability Jeane is doing well with HEP and we continue to update this as she gets stronger STG Duration 4 weeks Assisted Goal (LTG) Jeane has improved SI stability and is able to stabilize for a ASLR test Slowly improving SI stability, at times she is able to brace with her core for heel slides , other times this irritates her SI joint LTG Duration 12 weeks 1 Impairment SI and hip pain worse laying down to sleep, after sitting, and with walking. Pt has pain in her SI rolling over in bed . Short Term Goal (STG) Jeane is educated on abdominal bracing for bed mobility and positional changes GOAL MET STG Duration 4 weeks Assisted Goal (LTG) Jeane no longer complains of pain with bed mobility, she is able to perform sit-stand without pain and can increase her walking distance to 1 mile or greater. Progressing towards goals LTG Duration 12 weeks Progress Towards Goals Progress Towards Goals Progressing Toward Goals Assessment Summary Assessment Jeane is showing improved form with squats and lunges. She has been trying to walk more with her kids and I feel this is super helpful for her as well Physical Therapy Plan Frequency and Duration Frequency of Treatment 1x/Week Duration of treatment (weeks) 12 Plan of Care Start Date 07/25/22 Plan of Care End Date 10/15/22 Next Visit Focus/Plan Next Note Type Treatment Note Next Visit Plan core stabilization progression , work on planks, lateral hip stabilization and dynamic exercises. Try plyometrics on the shuttle Plan of Care Dates Plan of Care Start Date 07/25/22 Plan of Care End Date 10/15/22 Electronically Signed by: Nedra Posey, PT 07/25/22 0712 If you are in agreement with this Plan of Care, please return a signed and dated copy. I have reviewed this Plan of Care and certify that the skilled therapy services above are required to meet the patient?s needs. Physician Signature Date Printed Name and Credentials Clinical Instructor Signature Printed Name and Credentials
--- NOTE | 2022-08-29 17:23 | PT.OTN ---
Current Diagnoses Pain in unspecified hip (08/29/22) Spinal instabilities, sacral and sacrococcygeal region (08/29/22) Obstetric damage to pelvic joints and ligaments (08/29/22) Encounter for routine follow-up (08/29/22) Physical Therapy Treatment Note PT-OP-A Visit Information Start: 10/03/21 09:36 Freq: Status: Active Protocol: Document 08/29/22 15:18 [facility] (Rec: 08/29/22 16:03 [facility] [id number]) Out-Patient Physical Therapy Visit Information Visit Information Visit Type Treatment Note Visit Start Time 15:15 Visit Stop Time 16:00 Total Visit Minutes 45 Visit Number 18 PT-OP-B Current Condition Start: 10/03/21 09:36 Freq: Status: Active Protocol: Document 10/03/21 09:45 [facility] (Rec: 10/03/21 11:06 [facility] [id number]) Current Condition History of Current Condition Onset Date 2020, 2 months post Current Complaints hip pain and difficulty ambulating post History of Current Condition Hip pain was really bad in and now her baby is 2 months old. Jeane reports she has had 4 pregnancies in 2013, 2015, 2017, 2020, Her pain was worse towards the end of this last but it didnt seem to start as early on her her . She describes painmore in her SI joint but it seems to be related to core and instability, its almost always her right hip, sometimes she can get caught and feel pain then it goes away. She feels stiff in the am but doesn't feel stable stepping uo over a gate. All deliveries were vaginal deliveries. Tiny bit of tearing but didn't need stitches. Pt notes she really isn't having any leakage issues. She feels abdominal pressure at can feel like she is at time straining through her abdominal muscles. She has a video from the T[facility] team for core stability Treatment Goals Patient/Caregiver Goals Pts goals include reducing pain and improving her stability. She wants to be able to be active with her kids without pain and walk smoothly Current Functional Impairments (Reported) Functional Limitations- ADL's increased hip pain with sitting and sleeping, pain with transitional movements such as supine to sidelying in bed due to SI instability Functional Limitations- Mobility/Gait Jeane is limited with walking for exercise as this increases her pain, pt doesn't feel as if she is walking smoothly PT-OP-C Subjective Start: 10/03/21 09:36 Freq: Status: Active Protocol: Document 08/29/22 15:18 [facility] (Rec: 08/29/22 16:03 [facility] [id number]) OP-PT Subjective Patient Comments Patient Comments has been sick so hasn't done a lot of exercises, her hip hasn't been to bad. She is starting a walking routine and would like to have blocks of exercises written out that she could do on each day PT-OP-F Manual Assessment Start: 10/03/21 09:36 Freq: Status: Active Protocol: Document 10/03/21 09:38 [facility] (Rec: 10/04/21 13:36 [facility] [id number]) Manual Assessments Soft Tissue Assessment Soft Tissue Mobility Assessment tightness of the right >Left piriformis and posterior gluteals Diastasis scan was performed and Jeane is not presenting with a diastasis tightness of the L>R quadratus lumborum, lumbar paraspinal tightness B Joint Mobility Assessment Joint Mobility Assessment 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 With the SI specifically there is hypermobility with + ASLR test B, this test causes pain Standing single leg marching causes pain and unlocking of the SI joint PT-OP-I Pelvic Floor Start: 10/03/21 09:36 Freq: Status: Active Protocol: Document 10/03/21 09:45 [facility] (Rec: 10/04/21 13:36 [facility] [id number]) Pelvic Floor Assessment Urine Pelvic Floor Surgery No PT-OP-J Posture/Palpation/Skin Start: 10/03/21 09:36 Freq: Status: Active Protocol: Document 10/03/21 09:45 [facility] (Rec: 10/04/21 13:36 [facility] [id number]) Posture Evaluation Position Standing Evaluation View Lateral Pelvis Posture Posterior Tilted Comments Posture Comments pt stands in with a posterior pelvic tilt of the pelvis, hips anteriorly shifted bilaterally, pt likes to carry her kiddos on her left hip, she is elevated with her pelvis on the left PT-OP-M Strength Start: 10/03/21 09:36 Freq: Status: Active Protocol: Document 10/03/21 09:45 [facility] (Rec: 10/04/21 13:36 [facility] [id number]) Trunk Strength Trunk Manual Muscle Testing Testing Position Supine Flexion 2+ Poor+ Core Stabilization Jeane has a difficult time with TA recruitment in supine, when positioned in quadruped she is able to facilitate her TA. With attempts at dynamic stabilization today she had pain in her SI joint, she has pain with turning over in bed and was educated today on core recruitment prior to any transfers Hip Strength Hip Manual Muscle Testing Right Extension (S1) 3 Fair Abduction 3 Fair Left Extension (S1) 3 Fair Abduction 3 Fair PT-OP-Q Treatments Start: 10/03/21 14:37 Freq: Status: Active Protocol: Document 08/29/22 15:18 [facility] (Rec: 08/29/22 16:03 [facility] [id number]) Therapeutic Exercises Supine Exercises supine crunch with ball squeeze Reps/Minutes x 10 TA with march Reps/Minutes x 10 Comments no pain today with marches bug Reps/Minutes x 20 reps Comments modified to one leg at a time 1/2 foam roll stretch Reps/Minutes 5 min Sidelying Exercises clam shells Reps/Minutes 2x10 reps Other Exercises theraband lateral walks Reps/Minutes 2 min down dog Reps/Minutes x 3 Comments with flow into plank standing lunges Reps/Minutes x 10 each side Comments without support, improved form wag the tail Reps/Minutes x 8 times each side standing squats with theraband around the thighs Reps/Minutes x 10 Comments no theraband today as Jeane was able to keep knee alignment dynamic hamstring flossing Reps/Minutes in a squat position x 10 reps single leg stance without glut med drop Reps/Minutes 2 x 1 min each bridges with ball squeeze and segmental mobility Reps/Minutes x 10 quadruped opp arm lists Equipment Used 10 reps Comments pt able to perform OAL cat cow Reps/Minutes x15 PT-OP-T Assessment and Plan Start: 10/03/21 09:36 Freq: Status: Active Protocol: Document 08/29/22 15:15 [facility] (Rec: 08/29/22 17:23 [facility] [id number]) Physical Therapy Assessment Assessment Summary Assessment Jeane continues to show good progress with her stabilization. Today she was not experiencing any sciatic pain and could tolerate all exercises well. I wrote out exercises she could do after her walks that included her stretches. On off days she was instructed to work on her core exercises. She felt good with this routine. Jeane has one visit left in September Physical Therapy Plan Frequency and Duration Frequency of Treatment 1x/Week Duration of treatment (weeks) 12 Plan of Care Start Date 07/25/22 Plan of Care End Date 10/15/22 Therapeutic Interventions Therapeutic Interventions Home Exercise Program,Joint Mobilizations,Manual Therapy, Neuromuscular Re-education, Patient/Caregiver Education, Self-Care/Home Management,Soft Tissue Mobilization, Therapeutic Activities, Therapeutic Exercises Next Visit Focus/Plan Next Note Type Treatment Note Next Visit Plan Review HEP, core stabilization progression, work on planks, lateral hip stabilization and dynamic exercises.
--- NOTE | 2022-09-26 16:17 | PT.OTN ---
Current Diagnoses Pain in unspecified hip (09/26/22) Spinal instabilities, sacral and sacrococcygeal region (09/26/22) Obstetric damage to pelvic joints and ligaments (09/26/22) Encounter for routine follow-up (09/26/22) Physical Therapy Treatment Note PT-OP-A Visit Information Start: 10/03/21 09:36 Freq: Status: Active Protocol: Document 09/26/22 15:23 [facility] (Rec: 09/26/22 16:16 [facility] [id number]) Out-Patient Physical Therapy Visit Information Visit Information Visit Type Treatment Note Visit Start Time 15:20 Visit Stop Time 16:05 Total Visit Minutes 45 Visit Number 19 PT-OP-B Current Condition Start: 10/03/21 09:36 Freq: Status: Active Protocol: Document 10/03/21 09:45 [facility] (Rec: 10/03/21 11:06 [facility] [id number]) Current Condition History of Current Condition Onset Date 2020, 2 months post Current Complaints hip pain and difficulty ambulating post History of Current Condition Hip pain was really bad in and now her baby is 2 months old. Jeane reports she has had 4 pregnancies in 2013, 2015, 2017, 2020, Her pain was worse towards the end of this last but it didnt seem to start as early on her her . She describes painmore in her SI joint but it seems to be related to core and instability, its almost always her right hip, sometimes she can get caught and feel pain then it goes away. She feels stiff in the am but doesn't feel stable stepping uo over a gate. All deliveries were vaginal deliveries. Tiny bit of tearing but didn't need stitches. Pt notes she really isn't having any leakage issues. She feels abdominal pressure at can feel like she is at time straining through her abdominal muscles. She has a video from the T[facility] team for core stability Treatment Goals Patient/Caregiver Goals Pts goals include reducing pain and improving her stability. She wants to be able to be active with her kids without pain and walk smoothly Current Functional Impairments (Reported) Functional Limitations- ADL's increased hip pain with sitting and sleeping, pain with transitional movements such as supine to sidelying in bed due to SI instability Functional Limitations- Mobility/Gait Jeane is limited with walking for exercise as this increases her pain, pt doesn't feel as if she is walking smoothly PT-OP-C Subjective Start: 10/03/21 09:36 Freq: Status: Active Protocol: Document 09/26/22 15:23 [facility] (Rec: 09/26/22 16:16 [facility] [id number]) OP-PT Subjective Patient Comments Patient Comments pt reports she got sick after he last visit and has had a cough for 3 weeks. 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 With the SI specifically there is hypermobility with + ASLR test B, this test causes pain Standing single leg marching causes pain and unlocking of the SI joint PT-OP-I Pelvic Floor Start: 10/03/21 09:36 Freq: Status: Active Protocol: Document 10/03/21 09:45 [facility] (Rec: 10/04/21 13:36 [facility] [id number]) Pelvic Floor Assessment Urine Pelvic Floor Surgery No PT-OP-J Posture/Palpation/Skin Start: 10/03/21 09:36 Freq: Status: Active Protocol: Document 10/03/21 09:45 [facility] (Rec: 10/04/21 13:36 [facility] [id number]) Posture Evaluation Position Standing Evaluation View Lateral Pelvis Posture Posterior Tilted Comments Posture Comments pt stands in with a posterior pelvic tilt of the pelvis, hips anteriorly shifted bilaterally, pt likes to carry her kiddos on her left hip, she is elevated with her pelvis on the left PT-OP-M Strength Start: 10/03/21 09:36 Freq: Status: Active Protocol: Document 10/03/21 09:45 [facility] (Rec: 10/04/21 13:36 [facility] [id number]) Trunk Strength Trunk Manual Muscle Testing Testing Position Supine Flexion 2+ Poor+ Core Stabilization Jeane has a difficult time with TA recruitment in supine, when positioned in quadruped she is able to facilitate her TA. With attempts at dynamic stabilization today she had pain in her SI joint, she has pain with turning over in bed and was educated today on core recruitment prior to any transfers Hip Strength Hip Manual Muscle Testing Right Extension (S1) 3 Fair Abduction 3 Fair Left Extension (S1) 3 Fair Abduction 3 Fair PT-OP-Q Treatments Start: 10/03/21 14:37 Freq: Status: Active Protocol: Document 09/26/22 15:23 [facility] (Rec: 09/26/22 16:16 [facility] [id number]) Therapeutic Exercises Supine Exercises bridges Reps/Minutes x 15 piriformis stretch Reps/Minutes x 1 min each side 1/2 foam roll stretch Reps/Minutes 5 min supine adductor squeeze with pelvic floor Reps/Minutes x 10 Other Exercises down dog Reps/Minutes x 3 Comments with flow into plank cat cow Reps/Minutes x15 Manual Therapy Treatment Manual Techniques manual hamstring stretch Reps/Duration hold 1-2 min each side manual right LE distraction Reps/Duration 2 min long axis distraction MET for right pubic upslip Type MET Body Location right pubic upslip Body Position Supine Reps/Duration x 5 reps PT-OP-T Assessment and Plan Start: 10/03/21 09:36 Freq: Status: Active Protocol: Document 09/26/22 15:23 [facility] (Rec: 09/26/22 16:16 [facility] [id number]) Physical Therapy Assessment Assessment Summary Assessment pt presented with right SI pain again today. Her pubic bone was in a upslipped position and QL was tight on the right. Pt has not been able to do her exercises or start her walking routine due to sickness. Manual therapy was performed today to realign the pubic bone and Jeane notes she did feel better following treatment today. At this point she doesn't have any further visits. She would like to recheck in a month as to how she is doing with her HEP and walking routine Physical Therapy Plan Frequency and Duration Frequency of Treatment 1x/Week Duration of treatment (weeks) 12 Plan of Care Start Date 07/25/22 Plan of Care End Date 10/15/22 Therapeutic Interventions Therapeutic Interventions Home Exercise Program,Joint Mobilizations,Manual Therapy, Neuromuscular Re-education, Patient/Caregiver Education, Self-Care/Home Management,Soft Tissue Mobilization, Therapeutic Activities, Therapeutic Exercises Next Visit Focus/Plan Next Note Type Progress Note Next Visit Plan if pt feels she needs further PT then [place] to [place] next visit. Recheck alignment of the pelvis next visit
--- NOTE | 2023-04-02 11:56 | PT.OPDS ---
Current Diagnoses Pain in unspecified hip (09/26/22) Spinal instabilities, sacral and sacrococcygeal region (09/26/22) Obstetric damage to pelvic joints and ligaments (09/26/22) Encounter for routine follow-up (09/26/22) Visit Care Team Role Provider Type HALINA Guzman Family Provider Non-Staff Primary Care Provider Specialty: Family Practice Address: [address] [place] [address], [id number] Email: Arleth Schuster CNM Attending Provider Advanced [employer] Counselor Referring Provider Specialty: Medical Address: [address] [place] [address], [id number] Email: Visit Number Visit Number 19 Discharge Summary PT-OP-B Current Condition Start: 10/03/21 09:36 Freq: Status: Active Protocol: Document 10/03/21 09:45 [facility] (Rec: 10/03/21 11:06 [facility] [id number]) Current Condition History of Current Condition Onset Date 2020, 2 months post Current Complaints hip pain and difficulty ambulating post History of Current Condition Hip pain was really bad in and now her baby is 2 months old. Jeane reports she has had 4 pregnancies in 2013, 2015, 2018, 2020, Her pain was worse towards the end of this last but it didnt seem to start as early on her her . She describes painmore in her SI joint but it seems to be related to core and instability, its almost always her right hip, sometimes she can get caught and feel pain then it goes away. She feels stiff in the am but doesn't feel stable stepping uo over a gate. All deliveries were vaginal deliveries. Tiny bit of tearing but didn't need stitches. Pt notes she really isn't having any leakage issues. She feels abdominal pressure at can feel like she is at time straining through her abdominal muscles. She has a video from the [facility] for core stability Treatment Goals Patient/Caregiver Goals Pts goals include reducing pain and improving her stability. She wants to be able to be active with her kids without pain and walk smoothly Current Functional Impairments (Reported) Functional Limitations- ADL's increased hip pain with sitting and sleeping, pain with transitional movements such as supine to sidelying in bed due to SI instability Functional Limitations- Mobility/Gait Jeane is limited with walking for exercise as this increases her pain, pt doesn't feel as if she is walking smoothly PT-OP-C Subjective Start: 10/03/21 09:36 Freq: Status: Active Protocol: Document 09/26/22 15:23 [facility] (Rec: 09/26/22 16:16 [facility] [id number]) OP-PT Subjective Patient Comments Patient Comments pt reports she got sick after he last visit and has had a cough for 3 weeks. 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 With the SI specifically there is hypermobility with + ASLR test B, this test causes pain Standing single leg marching causes pain and unlocking of the SI joint PT-OP-I Pelvic Floor Start: 10/03/21 09:36 Freq: Status: Active Protocol: Document 10/03/21 09:45 [facility] (Rec: 10/04/21 13:36 [facility] [id number]) Pelvic Floor Assessment Urine Pelvic Floor Surgery No PT-OP-J Posture/Palpation/Skin Start: 10/03/21 09:36 Freq: Status: Active Protocol: Document 10/03/21 09:45 [facility] (Rec: 10/04/21 13:36 [facility] [id number]) Posture Evaluation Position Standing Evaluation View Lateral Pelvis Posture Posterior Tilted Comments Posture Comments pt stands in with a posterior pelvic tilt of the pelvis, hips anteriorly shifted bilaterally, pt likes to carry her kiddos on her left hip, she is elevated with her pelvis on the left PT-OP-M Strength Start: 10/03/21 09:36 Freq: Status: Active Protocol: Document 10/03/21 09:45 [facility] (Rec: 10/04/21 13:36 [facility] [id number]) Trunk Strength Trunk Manual Muscle Testing Testing Position Supine Flexion 2+ Poor+ Core Stabilization Jeane has a difficult time with TA recruitment in supine, when positioned in quadruped she is able to facilitate her TA. With attempts at dynamic stabilization today she had pain in her SI joint, she has pain with turning over in bed and was educated today on core recruitment prior to any transfers Hip Strength Hip Manual Muscle Testing Right Extension (S1) 3 Fair Abduction 3 Fair Left Extension (S1) 3 Fair Abduction 3 Fair PT-OP-T Assessment and Plan Start: 10/03/21 09:36 Freq: Status: Active Protocol: Document 04/02/23 11:55 [facility] (Rec: 04/02/23 11:56 [facility] [id number]) Physical Therapy Assessment Goals 4 Impairment Core weakness of the transverse abdominal muscles and pelvic floor Short Term Goal (STG) Jeane is educated on transverse abdominal and pelvic floor stabilization for a HEP GOAL MET STG Duration 4 weeks Fdc Goal (LTG) Jeane presents with improve core stabilization for her deep transverse abdominal muscles and her pelvic floor providing increased support for her SI joint. progressing towards goals LTG Duration 12 weeks 3 Impairment posterior/deep gluteal hip pain R>L made worse with walking. Pt rates her pain as 7/10 Fdc Goal (LTG) Jeane reports a overall reduction in hip pain and is able to walk and play with her kids with reduced pain EXCELLENT PROGRESS as of 07/25/22 Jeane reports intermittent c/o symptoms with days where she is not feeling pain. LTG Duration 12 weeks 2 Impairment SI instability Jeane is unable to perform a active SLR due to SI pain R> L Short Term Goal (STG) Jeane is educated in a HEP for core stability Jeane is doing well with HEP and we continue to update this as she gets stronger STG Duration 4 weeks Fdc Goal (LTG) Jeane has improved SI stability and is able to stabilize for a ASLR test Slowly improving SI stability, at times she is able to brace with her core for heel slides , other times this irritates her SI joint LTG Duration 12 weeks 1 Impairment SI and hip pain worse laying down to sleep, after sitting, and with walking. Pt has pain in her SI rolling over in bed . Short Term Goal (STG) Jeane is educated on abdominal bracing for bed mobility and positional changes GOAL MET STG Duration 4 weeks Machine Repair Person Goal (LTG) Jeane no longer complains of pain with bed mobility, she is able to perform sit-stand without pain and can increase her walking distance to 1 mile or greater. Progressing towards goals LTG Duration 12 weeks Assessment Summary Assessment Jeane has not been seen since September in PT. She will be discharged at this time to a [facility] Physical Therapy Plan Discharge Physical Therapy Discharge Reasons No Longer Attending PT
== END 2023-04-04 09:39 | disposition home or self-care (01) ==
LOC: PHYS 15:15
PROVIDERS: Family Provider Nurse Practitioner Family; PCP Nurse Practitioner Family; Referring Provider Registered Nurse; Visit Provider Registered Nurse
DX: O71.6 Obstetric damage to pelvic joints and ligaments (principal); Z39.2 Encounter for routine postpartum follow-up; M53.2X8 Spinal instabilities, sacral and sacrococcygeal region; M25.559 Pain in unspecified hip
CPT/HCPCS: 97110; 97140; 97161; 97535